=== PATIENT | female | born 1935 | race Hispanic/Latino ===

== ENCOUNTER 2019-05-22 06:18 | Inpatient (IN) | payer OTHER ==
[2019-05-22] MEDS ORDERED: NA CHLORIDE 0.9% 1,000 ML ONE (06:53)
[2019-05-22] MEDS ORDERED: FOLIC ACID 5 MG/ML VIAL ONE (06:54)
--- NOTE | 2019-05-22 07:13 | RAD REPORT ---
EXAM DESCRIPTION: CT - Ct Stroke Brain Wo Cont - 05/22/2019 6:40 am CLINICAL HISTORY: Hypertension, transient alteration of awareness, stroke protocol study CLINICAL HISTORY: CT head December 2015 TECHNIQUE: Axial 5 millimeter thick images of the head were obtained without IV contrast. All CT scans are performed using dose optimization technique as appropriate and may include automated exposure control or mA/KV adjustment according to patient size. FINDINGS: No intracranial hemorrhage, mass, or cerebral edema. No acute cortical based infarction. N o cortical edema or sulcal effacement. Significant atrophy changes are present. Ventricles are in pro portion to the amount of volume loss. There is chronic ischemic change as well. Small area of encepha lomalacia present in the lateral aspect left frontal lobe from prior CVA. No extra-axial fluid collec tions. Levy matter-white matter differentiation is preserved. Intracranial findings are not substantially different from the comparison. Visualized portions of the mastoid air cells, paranasal sinuses, and orbits are unremarkable. Findings telephoned to the referring physician 7:05 a.m. IMPRESSION: No CT evidence of an acute intracranial process. Advanced atrophy and mild chronic ischemic change are present matching the prior study. Chronic ischemic changes can mask nonhemorrhagic acute infarction. MR brain followup can be obtained if there is ongoing concern for acute ischemia.
[2019-05-22 07:39] LABS: Absolute Lymphocytes (CBC) 0.6 K/uL (0.7-4.9); Basophils % 0.4 % (0-1.3); Lymphocytes % 10.4 % (15.3-44.8); RBC Red Blood Cell Count 4.34 M/uL (3.86-4.86)
[2019-05-22 07:40] LABS: Protime INR 1.22
[2019-05-22 07:55] LABS: Magnesium 1.7 mg/dL (1.8-2.4); Potassium 3.7 mmol/L (3.5-5.1)
[2019-05-22] MEDS ORDERED: ASPIRIN 600 MG/SUPP PR ONE (08:29)
[2019-05-22] MEDS ORDERED: MAGNESIUM SULFATE 1 gm IVPB 1 GM/100 ML BAG IV ONE (08:53)
--- NOTE | 2019-05-22 08:53 | EDPHYS ---
Physician Documentation [facility] Name: Mary Frias Age: 84 yrs Sex: Female : 1935 Arrival Date: 05/22/2019 Time: 06:23 Bed 4 Private MD: ED Physician Adolfo Barriga HPI: 05/22 06:45 This 84 yrs old Female presents to ER via Unassigned with complaints of ams . jose 06:45 The patient presents with decreased responsiveness, dysphasia, trouble concentrating. jose Onset: The symptoms/episode began/occurred at an unknown time. Possible causes: CVA or TIA, head injury, low blood sugar. Associated signs and symptoms: The patient has no apparent associated signs or symptoms. Current symptoms: In the emergency department the patient's symptoms have improved, moderately, is more alert. Patient's baseline: Neuro: alert and fully oriented. The patient has not experienced similar symptoms in the past. Historical: - Allergies: 06:59 ETHER; bb - PMHx: 06:59 fracture- right shoulder, forearm and left wrist.; NIDDM, HTN, hypercholestermia, bb kidney stones, obesity,; - PSHx: 06:59 Knee surgery; bb - Immunization history:: Adult Immunizations up to date. - Social history:: Smoking status: unknown. - Ebola Screening: : Patient negative for fever greater than or equal to 101.5 degrees Fahrenheit, and additional compatible Ebola Virus Disease symptoms. - Family history:: not pertinent. ROS: 06:45 Constitutional: Negative for fever, chills, and weight loss, Eyes: Negative for injury, jose pain, redness, and discharge, ENT: Negative for injury, pain, and discharge, Neck: Negative for injury, pain, and swelling, Cardiovascular: Negative for chest pain, palpitations, and edema, Respiratory: Negative for shortness of breath, cough, wheezing, and pleuritic chest pain, Abdomen/GI: Negative for abdominal pain, nausea, vomiting, diarrhea, and constipation, Back: Negative for injury and pain, : Negative for injury, bleeding, discharge, and swelling, MS/Extremity: Negative for injury and deformity, Skin: Negative for injury, rash, and discoloration, Psych: Negative for depression, anxiety, suicide ideation, homicidal ideation, and hallucinations, Allergy/Immunology: Negative for hives, rash, and allergies, Endocrine: Negative for neck swelling, polydipsia, polyuria, polyphagia, and marked weight changes, Hematologic/Lymphatic: Negative for swollen nodes, abnormal bleeding, and unusual bruising. 06:45 Neuro: Positive for altered mental status, speech changes, weakness. Exam: 06:45 Constitutional: This is a well developed, well nourished patient who is awake, alert, jose and in no acute distress. Head/Face: Normocephalic, atraumatic. Eyes: Pupils equal round and reactive to light, extra-ocular motions intact. Lids and lashes normal. Conjunctiva and sclera are non-icteric and not injected. Cornea within normal limits. Periorbital areas with no swelling, redness, or edema. ENT: Nares patent. No nasal discharge, no septal abnormalities noted. Tympanic membranes are normal and external auditory canals are clear. Oropharynx with no redness, swelling, or masses, exudates, or evidence of obstruction, uvula midline. Mucous membranes moist. Neck: Trachea midline, no thyromegaly or masses palpated, and no cervical lymphadenopathy. Supple, full range of motion without nuchal rigidity, or vertebral point tenderness. No Meningismus. Chest/axilla: Normal chest wall appearance and motion. Nontender with no deformity. No lesions are appreciated. Cardiovascular: Regular rate and rhythm with a normal S1 and S2. No gallops, murmurs, or rubs. Normal PMI, no JVD. No pulse deficits. Respiratory: Lungs have equal breath sounds bilaterally, clear to auscultation and percussion. No rales, rhonchi or wheezes noted. No increased work of breathing, no retractions or nasal flaring. Abdomen/GI: Soft, non-tender, with normal bowel sounds. No distension or tympany. No guarding or rebound. No evidence of tenderness throughout. Back: No spinal tenderness. No costovertebral tenderness. Full range of motion. Female : Normal external genitalia. Skin: Warm, dry with normal turgor. Normal color with no rashes, no lesions, and no evidence of cellulitis. MS/ Extremity: Pulses equal, no cyanosis. Neurovascular intact. Full, normal range of motion. Neuro: Awake and alert, GCS 15, oriented to person, place, time, and situation. Cranial nerves II-XII grossly intact. Motor strength 5/5 in all extremities. Sensory grossly intact. Cerebellar exam normal. Normal gait. Psych: Awake, alert, with orientation to person, place and time. Behavior, mood, and affect are within normal limits. Vital Signs: 06:38 BP 195 / 88; Pulse 88; Resp 20 S; Temp 98(O); Pulse Ox 97% on 2 lpm NC; Weight 90.72 kg jd3 (R); Height 5 ft. 5 in. (165.10 cm) (R); Pain 0/10; 08:30 Pulse Ox 91% on R/A; sv 08:44 BP 203 / 98; Pulse 90; Resp 18; Pulse Ox 98% on 2 lpm NC; sv 09:30 BP 208 / 96; Pulse 85; Resp 20; Pulse Ox 98% on 2 lpm NC; sv 10:00 BP 217 / 82; Pulse 83; Resp 21; Pulse Ox 97% on 2 lpm NC; sv 06:38 Body Mass Index 33.28 (90.72 kg, 165.10 cm) jd3 08:30 Pt placed on O2 \T\ 2L per NC. O2 sat up to 98%. sv NIH Stroke Scale Scores: 06:45 NIHSS Score: 0 jose MDM: 06:24 Patient medically screened. jose 06:50 Data reviewed: vital signs, nurses notes, lab test result(s), EKG, radiologic studies, jose CT scan. 05/22 06:32 Order name: Magnesium; Complete Time: 08:11 jose 05/22 06:32 Order name: Basic Metabolic Panel; Complete Time: 08:11 jose 05/22 06:32 Order name: CBC with Diff; Complete Time: 08:11 jose 05/22 06:32 Order name: Protime (+inr); Complete Time: 08:11 jose 05/22 06:32 Order name: Ptt, Activated; Complete Time: 08:11 jose 05/22 06:32 Order name: Urine Culture [facility] 05/22 06:28 Order name: CT Stroke Brain w/o Contrast; Complete Time: 07:36 kb 05/22 06:32 Order name: Stroke CXR 1 View [facility] 05/22 06:32 Order name: BNP; Complete Time: 08:11 jose 05/22 07:44 Order name: Brain Wo Cont EDMS 05/22 08:39 Order name: Urine Dipstick--Ancillary (enter results) 05/22 08:40 Order name: US Carotid Artery Bilateral [facility] 05/22 08:40 Order name: Echo w/ Doppler [facility] 05/22 06:32 Order name: EKG; Complete Time: 06:34 [facility] 05/22 06:32 Order name: Accucheck; Complete Time: 06:45 [facility] 05/22 06:32 Order name: Cardiac monitoring; Complete Time: 06:45 [facility] 05/22 06:32 Order name: EKG - Nurse/Tech; Complete Time: 06:45 [facility] 05/22 06:32 Order name: IV Saline Lock; Complete Time: 06:45 [facility] 05/22 06:32 Order name: Labs collected and sent; Complete Time: 06:45 [facility] 05/22 06:32 Order name: NPO; Complete Time: 06:45 [facility] 05/22 06:32 Order name: O2 Per Protocol; Complete Time: 06:45 [facility] 05/22 06:32 Order name: O2 Sat Monitoring; Complete Time: 06:45 [facility] 05/22 06:32 Order name: Stroke Swallow Screen; Complete Time: 06:45 [facility] 05/22 06:32 Order name: Urine Dipstick-Ancillary (obtain specimen); Complete Time: 09:09 [facility] Administered Medications: 06:50 Drug: NS 0.9% 1000 ml Route: IV; Rate: 1 bolus; Site: left antecubital; rr5 08:00 Follow up: Response: No adverse reaction; IV Status: Completed infusion; IV Intake: sv 1000ml 06:50 Drug: foLIC Acid 1 mg Route: IVPB; Site: left antecubital; rr5 08:00 Follow up: Response: No adverse reaction; IV Status: Completed infusion; IV Intake: sv 0.2ml 08:38 CANCELLED (failed swallow screening, informed Dr Barriga): Aspirin Chewable Tablet 324 sv mg PO once; 81 mg tablets x 4 08:38 Drug: Aspirin Suppository 300 mg Route: GA; sv 08:50 Follow up: Response: No adverse reaction sv 08:44 Drug: Magnesium Sulfate 1 grams Route: IVPB; Infused Over: 1 hrs; Site: left sv antecubital; 10:00 Follow up: Response: No adverse reaction; IV Status: Infusion continued upon admission sv 08:52 CANCELLED (Physician Discretion): Rocephin 1 grams IV at per protocol once; Given slow sv IV push per pharmacy instructions Point of Care Testing: Blood Glucose: 06:44 Blood Glucose: 290 mg/dL; jd3 Ranges: Critical Glucose Levels:Adult <50 mg/dl or >400 mg/dl <40 mg/dl or >180 mg/dl Disposition: 05/22/19 08:51 Hospitalization ordered by Jenifer Leroy for Inpatient Admission. Preliminary diagnosis are Weakness, Hypomagnesemia, Type 2 diabetes mellitus, Altered mental status, unspecified. - Bed requested for Telemetry/MedSurg (Inpatient). - Status is Inpatient Admission. iw - Condition is Fair. - Problem is new. - Symptoms have improved. UTI on Admission? No NIH Stroke Scale - NIH Stroke Score Date: 05/22/2019 Time: 06:45 Total Score = 0 1a. Level of Consciousness (LOC) - 0(Alert) 1b. Level of Consciousness (LOC) (Year \T\ Age) - 0(Both) 1c. LOC Commands (Open \T\ Closes Eyes/Certified Lactation Counselor) - 0(Both) 2. Best Gaze (Lateral Gaze Paresis) - 0(Normal) 3. Visual Field Loss - 0(No visual loss) 4. Facial Palsy - 0(Normal) 5a. Left Arm: Motor (10-second hold) - 0(No drift) 5b. Right Arm: Motor (10-second hold) - 0(No drift) 6a. Left Leg: Motor (5-second hold - always test supine) - 0(No drift) 6b. Right Leg: Motor (5-second hold - always test supine) - 0(No drift) 7. Limb Ataxia (finger/nose \T\ heel/myers - test with eyes open) - 0(Absent) 8. Sensory Loss (pinprick arms/legs/face) - 0(Normal) 9. Best Language: Aphasia (description/naming/reading) - 0(No aphasia) 10. Dysarthria (speech clarity - read or repeat words) - 0(Normal) 11. Extinction and Inattention (visual/tactile/auditory/spatial/personal) - 0(No abnormality) Initials: jose Signatures: Dispatcher [employer] Maureen Theodore RN RN sv Anderson, Corey, MD MD cha Ballard, Brenda, RN RN bb Williams, Irene, RN RN iw Davies, Jonathon, RN RN jd3 Cristino Cuellar RN RN ja1 Eliecer Dupont, RN RN rr5 Corrections: (The following items were deleted from the chart) 07:46 06:59 MR STROKE PROTOCOL+MRI.RAD.BRZ ordered. EDMS EDMS 08:38 07:24 Aspirin Chewable Tablet 324 mg PO once; 81 mg tablets x 4 ordered. jose sv 08:38 08:38 Aspirin Chewable Tablet 324 mg PO once; 81 mg tablets x 4 ordered. sv sv 08:52 08:39 Rocephin 1 grams IV at per protocol once; Given slow IV push per pharmacy sv instructions ordered. jose 08:52 08:51 Rocephin 1 grams IV at per protocol once; Given slow IV push per pharmacy sv instructions ordered. sv 09:37 08:51 Hospitalization Ordered by Jenifer Leroy MD for Inpatient Admission. ja1 Preliminary diagnosis is Weakness; Hypomagnesemia; Type 2 diabetes mellitus; Altered mental status, unspecified. Bed requested for Telemetry/MedSurg (Inpatient). Status is Inpatient Admission. Condition is Fair. Problem is new. Symptoms have improved. UTI on Admission? No. jose 10:18 09:37 05/22/2019 08:51 Hospitalization Ordered by Jenifer Leroy MD for Inpatient iw Admission. Preliminary diagnosis is Weakness; Hypomagnesemia; Type 2 diabetes mellitus; Altered mental status, unspecified. Bed requested for Telemetry/MedSurg (Inpatient). Status is Inpatient Admission. Condition is Fair. Problem is new. Symptoms have improved. UTI on Admission? No. ja1
--- NOTE | 2019-05-22 08:53 | ER ---
Nurse's Notes [facility] Name: Mary Frias Age: 84 yrs Sex: Female : 1935 Arrival Date: 05/22/2019 Time: 06:23 Bed 4 Private MD: Diagnosis: Weakness;Hypomagnesemia;Type 2 diabetes mellitus;Altered mental status, unspecified Presentation: 05/22 06:25 Presenting complaint: EMS states: pt states they were toned out for report of pt being bb unresponsive with difficulty speaking, daughter states pt had a fall yesterday and was seen at [place] and had a CT done which was negative, pt was sent home and seemed fine all day just a little sore then daughter went to bed last night approx [id number] and pt wanted to stay up and read her bible. Pt was sitting at the kitchen table when she went to bed last night and when she woke up this morning pt was slumped over at the kitchen unresponsive and was having difficulty talking and couldn't move. Transition of care: patient was not received from another setting of care. Onset of symptoms was May 21, 2019 at 21:30. Risk Assessment: Do you want to hurt yourself or someone else? Unable to obtain. Initial Sepsis Screen: Does the patient meet any 2 criteria? No. Patient's initial sepsis screen is negative. Does the patient have a suspected source of infection? No. Patient's initial sepsis screen is negative. Care prior to arrival: IV initiated. 20 GA, in the left forearm. 06:25 Method Of Arrival: EMS: [facility] 06:25 Acuity: SARA 2 bb Historical: - Allergies: 06:59 ETHER; bb - PMHx: 06:59 fracture- right shoulder, forearm and left wrist.; NIDDM, HTN, hypercholestermia, bb kidney stones, obesity,; - PSHx: 06:59 Knee surgery; bb - Immunization history:: Adult Immunizations up to date. - Social history:: Smoking status: unknown. - Ebola Screening: : Patient negative for fever greater than or equal to 101.5 degrees Fahrenheit, and additional compatible Ebola Virus Disease symptoms. - Family history:: not pertinent. Screenin:43 Abuse screen: Denies threats or abuse. Nutritional screening: No deficits noted. jd3 Tuberculosis screening: No symptoms or risk factors identified. Fall Risk IV access (20 points). Ambulatory Aid- None/Bed Rest/Nurse Assist (0 pts). Gait- Weak (10 pts.). Total Nunez Fall Scale indicates Low Risk Score (25-44 pts). Fall prevention measures have been instituted. Side Rails Up X 2 Placed close to Nursing Station Frequent Obs/Assesments occuring. 06:59 The patient has not been NPO before screening. The patient is alert, able to follow bb commands. The patient exhibits slurred or garbled speech. The patient is exhibiting difficulty speaking. The patient does not exhibit difficulty understanding words. The patient is able to swallow own secretions with no drooling or need for suction. The patient failed the bedside swallow screening. The patient will be kept NPO until cleared by Speech Therapy or Physician. Provider notified of bedside swallow screening results: Adolfo Barriga MD. Assessment: 07:15 General: Appears in no apparent distress. uncomfortable, obese, well developed, sv Behavior is calm, cooperative, appropriate for age. General: Family reports decreased mentation.. Pain: Denies pain. Neuro: Level of Consciousness is awake, obeys commands, confused, Oriented to person, Moves all extremities. Facial symmetry appears normal. Cardiovascular: Patient's skin is warm and dry. Rhythm is sinus rhythm. Respiratory: Airway is patent Respiratory effort is even, unlabored, Respiratory pattern is regular, symmetrical. Derm: Skin is normal. Musculoskeletal: Range of motion: intact in all extremities. 08:30 Reassessment: Patient appears in no apparent distress at this time. No changes from sv previously documented assessment. Patient and/or family updated on plan of care and expected duration. Pain level reassessed. 08:50 Reassessment: US at the bedside. sv 09:10 Reassessment: Dr Leroy at the bedside. sv 09:45 Reassessment: Patient appears in no apparent distress at this time. No changes from sv previously documented assessment. Patient and/or family updated on plan of care and expected duration. Pain level reassessed. Vital Signs: 06:38 BP 195 / 88; Pulse 88; Resp 20 S; Temp 98(O); Pulse Ox 97% on 2 lpm NC; Weight 90.72 kg jd3 (R); Height 5 ft. 5 in. (165.10 cm) (R); Pain 0/10; 08:30 Pulse Ox 91% on R/A; sv 08:44 BP 203 / 98; Pulse 90; Resp 18; Pulse Ox 98% on 2 lpm NC; sv 09:30 BP 208 / 96; Pulse 85; Resp 20; Pulse Ox 98% on 2 lpm NC; sv 10:00 BP 217 / 82; Pulse 83; Resp 21; Pulse Ox 97% on 2 lpm NC; sv 06:38 Body Mass Index 33.28 (90.72 kg, 165.10 cm) jd3 08:30 Pt placed on O2 \T\ 2L per NC. O2 sat up to 98%. sv NIH Stroke Scale Scores: 06:45 NIHSS Score: 0 jose ED Course: 06:23 Patient arrived in ED. ds1 06:24 Adolfo Barriga MD is Attending Physician. jose 06:35 CT completed. Patient tolerated procedure well. Patient moved to CT via stretcher. Patient moved back from CT. 06:41 CT Stroke Brain w/o Contrast In Process Unspecified. EDMS 06:42 Arm band placed on. EKG completed in triage. Results shown to MD. jd3 06:43 Maintain EMS IV. Dressing intact. Good blood return noted. Site clean \T\ dry. Gauge \T\ jett 3 site: 20 G left AC. 06:44 Patient has correct armband on for positive identification. Placed in gown. Bed in low jd3 position. Call light in reach. Side rails up X2. bus monitor on. Pulse ox on. NIBP on. Warm blanket given. 06:47 Stroke CXR 1 View In Process Unspecified. EDMS 06:59 Triage completed. bb 07:38 Patient moved to MRI via stretcher. em2 07:44 Maureen Chapman, RN is Primary Nurse. sv 07:49 Brain Wo Cont In Process Unspecified. EDMS 08:13 MRI completed. Patient tolerated well. Patient moved back from MRI. em2 08:30 Straight cath inserted, using sterile technique, 16 Fr. Specimen obtained. Returned sv clear yellow urine. Patient tolerated poorly. 08:49 Jenifer Leroy MD is Hospitalizing Provider. jose 09:24 US Carotid Artery Bilateral In Process Unspecified. EDMS 10:04 No provider procedures requiring assistance completed. Patient admitted, IV remains in sv place. intact. 17:56 Echo w/ Doppler Sent. sv Administered Medications: 06:50 Drug: NS 0.9% 1000 ml Route: IV; Rate: 1 bolus; Site: left antecubital; rr5 08:00 Follow up: Response: No adverse reaction; IV Status: Completed infusion; IV Intake: sv 1000ml 06:50 Drug: foLIC Acid 1 mg Route: IVPB; Site: left antecubital; rr5 08:00 Follow up: Response: No adverse reaction; IV Status: Completed infusion; IV Intake: sv 0.2ml 08:38 CANCELLED (failed swallow screening, informed Dr Barriga): Aspirin Chewable Tablet 324 sv mg PO once; 81 mg tablets x 4 08:38 Drug: Aspirin Suppository 300 mg Route: WI; sv 08:50 Follow up: Response: No adverse reaction sv 08:44 Drug: Magnesium Sulfate 1 grams Route: IVPB; Infused Over: 1 hrs; Site: left sv antecubital; 10:00 Follow up: Response: No adverse reaction; IV Status: Infusion continued upon admission sv 08:52 CANCELLED (Physician Discretion): Rocephin 1 grams IV at per protocol once; Given slow sv IV push per pharmacy instructions Point of Care Testing: Blood Glucose: 06:44 Blood Glucose: 290 mg/dL; jd3 Ranges: Intake: 08:00 IV: 1000ml; Total: 1000ml. sv 08:00 IV: 0ml; Total: 1000ml. sv Outcome: 08:51 Decision to Hospitalize by Provider. jose 10:04 Admitted to Tele accompanied by tech, family with patient, via stretcher, room 414, sv with chart, Report called to Lazaro ALVAREZ 10:04 Condition: stable 10:04 Instructed on the need for admit. 10:18 Patient left the ED. iw NIH Stroke Scale - NIH Stroke Score Date: 05/22/2019 Time: 06:45 Total Score = 0 1a. Level of Consciousness (LOC) - 0(Alert) 1b. Level of Consciousness (LOC) (Year \T\ Age) - 0(Both) 1c. LOC Commands (Open \T\ Closes Eyes/Senior Data Warehouse Architect) - 0(Both) 2. Best Gaze (Lateral Gaze Paresis) - 0(Normal) 3. Visual Field Loss - 0(No visual loss) 4. Facial Palsy - 0(Normal) 5a. Left Arm: Motor (10-second hold) - 0(No drift) 5b. Right Arm: Motor (10-second hold) - 0(No drift) 6a. Left Leg: Motor (5-second hold - always test supine) - 0(No drift) 6b. Right Leg: Motor (5-second hold - always test supine) - 0(No drift) 7. Limb Ataxia (finger/nose \T\ heel/myers - test with eyes open) - 0(Absent) 8. Sensory Loss (pinprick arms/legs/face) - 0(Normal) 9. Best Language: Aphasia (description/naming/reading) - 0(No aphasia) 10. Dysarthria (speech clarity - read or repeat words) - 0(Normal) 11. Extinction and Inattention (visual/tactile/auditory/spatial/personal) - 0(No abnormality) Initials: jose Signatures: Dispatcher [employer] Maureen Theodore, RN RN Adolfo Kohli MD MD cha Hagler, [place] ds1 Shawna Verde RN Abby Barbour RN Steve Antony em2 Conrad Sosa RN RN jd3 Eliecer Dupont RN RN rr5
--- NOTE | 2019-05-22 08:54 | RAD REPORT ---
EXAM DESCRIPTION: MRI - Brain Wo Cont - 05/22/2019 8:00 am CLINICAL HISTORY: Dizziness COMPARISON: May 22, [address] TECHNIQUE: Axial, sagittal, and coronal magnetic images of the brain were obtained. Contrast was not requested FINDINGS: Abnormal signal within the left parietal lobe has the appearance of an old infarction. Cer ebral atrophy is noted. Diffusion-weighted/ADC mapping does not reveal evidence of acute infarction. The ventricles are normal caliber. An extra-axial fluid collection is not present The sinuses and mastoids are clear. IMPRESSION: No acute abnormality is displayed
[2019-05-22] MEDS ORDERED: CEFTRIAXONE/SWI 1gm 0 GM/0 ML SYR ONE (09:06)
--- NOTE | 2019-05-22 09:36 | RAD REPORT ---
EXAM DESCRIPTION: Yasmine Single View05/22/2019 6:46 am CLINICAL HISTORY: Chest pain COMPARISON: 2010 FINDINGS: The lungs appear clear of acute infiltrate. The heart is mildly enlarged. IMPRESSION: No acute abnormalities displayed
[2019-05-22 09:47] LABS: Urine Blood 1+ (NEG); Urine Glucose 2+ (NEG); Urine Protein 2+ (NEG); Urine Specific Gravity 1.025 (1.005-1.030); Urine pH 6.5 (5.0-7.0)
--- NOTE | 2019-05-22 10:47 | RAD REPORT ---
EXAM DESCRIPTION: USCarotid Artery Bilateral05/22/2019 9:23 am CLINICAL HISTORY: CVA COMPARISON: None FINDINGS: The velocity of the right internal carotid artery equals 81 cm/sec. The right ICA/CCA rati o 1 The velocity of the left internal carotid artery equals 58 cm/sec. The left ICA/CCA ratio 0.9 Mild plaque is present within the carotid arteries. The vertebral arteries demonstrate antegrade flow 2.3 x 0.7 centimeter left neck lymph node IMPRESSION: Mild plaque within the carotid arteries without evidence of a hemodynamically significan t stenosis NASCET criteria used. Mild 0-49% stenosis Moderate 50-69% stenosis Severe 70-99% stenosis 2.3 x 0.7 centimeter left neck lymph node nonspecific. Follow-up ultrasound of the neck in 6 weeks re commended for re-evaluation
[2019-05-22 11:22] VITALS: BMI 33.3
--- NOTE | 2019-05-22 13:33 | EKG ---
Test Date: 2019-05-22 Test Time: 06:45:46 Crossing Supervisor: FIORELLA MEASUREMENT RESULTS: Intervals: Rate: 89 DC: 150 QRSD: 92 QT: 370 QTc: 450 [place]: P: 41 DC: 150 QRS: -25 T: 11 INTERPRETIVE STATEMENTS: Normal sinus rhythm Minimal voltage criteria for LVH, may be normal variant Nonspecific ST and T wave abnormality Abnormal ECG Compared to ECG 06/20/2011 09:01:27 Left ventricular hypertrophy now present ST (T wave) deviation now present Sinus bradycardia no longer present Electronically Signed On 05-22-19 13:33:21 CDT by Angel Bowles
--- NOTE | 2019-05-22 13:36 | ECHO ---
HEIGHT: 5 ft 5 in WEIGHT: 200 lb 0 oz DATE OF STUDY: 05/22/[address]: Adolfo Barriga MD 2-DIMENSIONAL: YES M.MODE: YES DOPPLER: YES COLOR FLOW: YES TDS: YES PORTABLE: DEFINITY: BUBBLE STUDY: DIAGNOSIS: ALTERED MENTAL STATUS CARDIAC HISTORY: CATHERIZATION: NO SURGERY: NO PROSTHETIC VALVE: NO PACEMAKER: NO MEASUREMENTS (cm) DIASTOLIC (NORMALS) SYSTOLIC (NORMALS) IVSd 1.3 (0.6-1.2) LA Diam (1.9-4.0) LVEF 52% LVIDd 3.5 (3.5-5.7) LVIDs 2.6 (2.0-3.5) %FS 26% LVPWd 1.2 (0.6-1.2) Ao Diam 2.6 (2.0-3.7) 2 DIMENSIONAL ASSESSMENT: RIGHT ATRIUM: NORMAL LEFT ATRIUM: DILATED RIGHT VENTRICLE: NORMAL LEFT VENTRICLE: LEFT VENTRICULAR HYPERTROPHY TRICUSPID VALVE: NORMAL MITRAL VALVE: MITRAL ANNULAR CALCIFICATION PULMONIC VALVE: NORMAL AORTIC VALVE: SCLEROSIS PERICARDIAL EFFUSION: NONE AORTIC ROOT: NORMAL LEFT VENTRICULAR WALL MOTION: DOPPLER/COLOR FLOW: IMPAIRED LEFT VENTRICULAR RELAXATION. NO AORTIC STENOSIS OR AORTIC REGURGITATION. COMMENTS: NORMAL LEFT VENTRICULAR EJECTION FRACTION. LEFT VENTRICULAR HYPERTROPY. DILATED LEFT ATRIUM. MITRAL ANNULAR CALCIFICATION. AORTIC SCLEROSIS WITH NO AORTIC STENOSIS OR AORTIC REGURGITATION. IMPAIRED LEFT VENTRICULAR RELAXATION. TECHNOLOGIST: ASHLEY BECK
[2019-05-22] MEDS ORDERED: ONDANSETRON 4 MG/2 ML VIAL IV PRN (14:11)
[2019-05-22] MEDS ORDERED: HYDRALAZINE HCL 20 MG/ML VIAL IV ONE (14:12)
[2019-05-22] MEDS: ENOXAPARIN 40 MG/0.4 ML SQ SCH (15:27)
--- NOTE | 2019-05-22 16:37 | P.HP ---
Certification for Inpatient Patient admitted to: Inpatient With expected LOS: >2 Midnights Practitioner: I am a practitioner with admitting privileges, knowledge of patient current condition, hospital course, and medical plan of care. Services: Services provided to patient in accordance with Admission requirements found in Title 42 Section 412.3 of the Code of Federal Regulations Patient History Date of Service: 05/22/19 History of Present Illness: This is an 84-year-old female with history of hypertension, diabetes, hyperlipidemia admitted for altered mental status. Per family at bedside, patient started with more lethargy and confusion the night prior to admission. The morning of admission, daughter states that patient was fairly unresponsive. She would not respond with words and but just grunted when called. She was unable to provide any he answers to any questions. At baseline, daughter states that patient is usually alert oriented, independent in bathing and feeding herself. Family does state that patient was complaining of severe swelling on the left side. As patient was not really at her baseline mentation , they called the EMS and patient was rushed to the ER. In the ER, her labs were fairly unremarkable and as noted that her blood pressure was very high, over 200/80-90. Stroke protocol imaging was done. CT of the head without contrast noted chronic changes, with no acute abnormalities. An MRI of the brain was done which was without any acute changes. 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 At the time of my exam, patient was not responding to questions, though she was alert. Her blood pressure continued to be elevated. She was admitted for altered mentation, unspecified etiology. Allergies ether Allergy (Unverified 01/25/16 19:15) Unknown Home medications list reviewed: Yes Home Medications: Apixaban [Eliquis] 5 mg PO BID 05/22/19 Insulin Detemir [Levemir Flextouch] 20 units SQ BEDTIME 05/22/19 Lisinopril 40 mg PO DAILY 05/22/19 Melatonin 5 mg PO BEDTIME 05/22/19 Ranitidine [Zantac] 150 mg PO DAILY 05/22/19 - Past Medical/Surgical History -: Hypertension -: Diabetes Mellitus -: High Cholesterol -: Obesity -: kidnesy sx -: bone sx - Social History Smoking Status: Never smoker Alcohol use: No CD- Drugs: No Caffeine use: Yes Place of Residence: Home Review of Systems 10-point ROS is otherwise unremarkable Physical Examination - Vital Signs Temperature: 98 F Blood Pressure: 203/98 Pulse: 90 Respirations: 18 - Physical Exam General: Alert, In no apparent distress, Confused HEENT: Atraumatic, PERRLA, Mucous membr. moist/pink, Other (Left ear with redness/warmth to touch/tenderness), EOMI, Sclerae nonicteric Neck: Supple, 2+ carotid pulse no bruit, No LAD, Without JVD or thyroid abnormality Respiratory: Clear to auscultation bilaterally, Normal air movement Cardiovascular: Regular rate/rhythm, Normal S1 S2 Gastrointestinal: Normal bowel sounds, No tenderness Musculoskeletal: No tenderness Integumentary: No rashes Neurological: Other (Unable to do full neuro exam due to mentation), Dementia Lymphatics: No axilla or inguinal lymphadenopathy - Studies Laboratory Data (last 24 hrs) 05/22/19 07:00: PT 14.3 H, INR 1.22, APTT 32.8 05/22/19 07:00: WBC 5.7, Hgb 13.8, Hct 41.0, Plt Count 165 05/22/19 07:00: Sodium 138, Potassium 3.7, BUN 10, Creatinine 0.74, Glucose 295 H, Magnesium 1.7 L Assessment and Plan - Problems (Diagnosis) (1) Encephalopathy Current Visit: Yes Status: Acute Plan: Unknown etiology; could be secondary to hypertensive urgency versus CVA versus advancing dementia - MRI of the head negative for any acute abnormalities; it does note Abnormal signal within the left parietal lobe has the appearance of an old infarction. Cerebral atrophy is noted. - ultrasound of bilateral carotid artery is negative for any hemodynamically significant stenosis. - echocardiogram done, evident over diastolic heart failure with preserved ejection fraction. No volume overload symptoms noted on exam - CT scan of the head negative for any acute abnormalities; does show chronic ischemic changes - hold IV fluids this time due to diastolic failure. She did receive IV fluids in the ER. - continue to treat hypertensive disease; urine studies pending - May need urology consultation when available, if no improvement in neurological status. (2) Hypertensive urgency Current Visit: Yes Status: Acute Plan: Patient with uncontrolled blood pressure and altered mental status concerning for hypertensive urgency - IV hydralazine 10 mg q. 6 as needed. Strict blood pressure monitor -we will restart home medications and make adjustments as needed. (3) Cellulitis Current Visit: Yes Status: Acute Plan: Patient has swelling/redness and warmth of left ear/pinna. - will go ahead and start IV antibiotics to cover for skin infection. - no white count noted, no fever or chills. Will continue to monitor vital signs and labs Qualifiers: Site of cellulitis: other site Qualified Code(s): L03.818 - Cellulitis of other sites (4) Dysphasia Current Visit: Yes Status: Acute Plan: Patient having suspected trouble swallowing. - Speech therapy and MBS to evaluate swallow function. - keep NPO until MBS done (5) History of CVA (cerebrovascular accident) Current Visit: No Status: Chronic (6) Hypertension Current Visit: Yes Status: Chronic Plan: Uncontrolled, see plan above. -Will restart home medications, monitor blood pressure Qualifiers: Hypertension type: essential hypertension Qualified Code(s): I10 - Essential (primary) hypertension (7) Diabetes mellitus Current Visit: No Status: Chronic Qualifiers: Diabetes mellitus type: type 2 Diabetes mellitus assisted insulin use: with assisted use Diabetes mellitus complication status: without complication Qualified Code(s): E11.9 - Type 2 diabetes mellitus without complications; Z79.4 - MCFP (current) use of insulin (8) Hyperlipidemia Current Visit: No Status: Chronic Qualifiers: Hyperlipidemia type: unspecified Qualified Code(s): E78.5 - Hyperlipidemia , unspecified (9) Obesity Current Visit: Yes Status: Acute Qualifiers: Obesity type: due to excess calories Obesity classification: adult class 1 (BMI 30 - 34.9) Serious obesity comorbidity presence: without serious comorbidity Body mass index: BMI 33.0-33.9 Qualified Code(s): E66.09 - Other obesity due to excess calories; Z68.33 - Body mass index (BMI) 33.0-33.9, adult - Plan DVT prophylaxis: Lovenox GI prophylaxis: None Diet: NPO till MBS Disposition: Pending workup and symptomatic improvement. Discharge Plan: Home Plan to discharge in: Greater than 2 days - Advance Directives Does patient have a Living Will: Yes Does patient have a Durable POA for Healthcare: Yes - Code Status/Comfort Care Code Status Assessed: Yes Code Status: Do Not Resuscitate Time Spent Managing Pts Care (In Minutes): 55
[2019-05-22] MEDS: INSULIN -REGULAR HUMAN 50 UNIT/0.5 ML ML SQ SCH ×2 (16:44→20:01)
[2019-05-22] MEDS: ACETAMINOPHEN 500 MG TAB PO PRN (19:55)
[2019-05-22] MEDS: INSULIN GLARGINE 100 UNITS/ML SQ SCH (20:01)
[2019-05-22] MEDS: HYDRALAZINE HCL 20 MG/ML VIAL IV PRN (20:02)
[2019-05-22] MEDS: MELATONIN 5 MG TABLET PO SCH (20:02)
[2019-05-22] MEDS: APIXABAN 5 MG TABLET PO SCH (20:02)
[2019-05-22] MEDS ORDERED: POTASSIUM 25 MEQ EFFERV TAB PO ONE (21:00)
[2019-05-22] MEDS ORDERED: INSULIN DETEMIR 20 UNIT SQ SCH (21:00)
--- NOTE | 2019-05-22 21:19 | RAD REPORT ---
EXAM DESCRIPTION: RAD - Barium Swallow Modified - 05/22/2019 5:40 pm CLINICAL HISTORY: Dysphagia COMPARISON: None. TECHNIQUE: The patient was given liquid, semi-solid and solid forms of barium. Lateral view fluorosc opic imaging was performed in conjunction with speech pathology service. FINDINGS: [place]oop acquisitions: 26 Fluoro time: 4 minutes 46 seconds PHARYNGEAL RESIDUE: VALLECULAR, PYRIFORM OTHER: SEVER ORAL DYSPHAGIA, MIN WITH THIN AND AT END OF STUDY. 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
[2019-05-23] MEDS: HYDRALAZINE HCL 20 MG/ML VIAL IV PRN (04:55)
[2019-05-23 05:57] LABS: Absolute Lymphocytes (CBC) 0.8 K/uL (0.7-4.9); Basophils % 0.5 % (0-1.3); Hematocrit 38.3 % (36.0-45.0); Lymphocytes % 12.7 % (15.3-44.8); MPV 11.2 fL (7.6-11.3)
[2019-05-23 06:15] LABS: ALT/SGPT 23 U/L (12-78); AST/SGOT 28 U/L (15-37); Albumin 3.1 g/dL (3.4-5.0); Alkaline Phosphatase 84 U/L (45-117); BUN Blood Urea Nitrogen 12 mg/dL (7-18); Bicarbonate 28 mmol/L (21-32); Bilirubin Total 0.7 mg/dL (0.2-1.0); Glucose Level 273 mg/dL (74-106); Potassium 3.5 mmol/L (3.5-5.1); Protein, Total 6.6 g/dL (6.4-8.2); Sodium Level 137 mmol/L (136-145)
[2019-05-23] MEDS: INSULIN -REGULAR HUMAN 50 UNIT/0.5 ML ML SQ SCH ×4 (08:17→21:31)
[2019-05-23] MEDS: APIXABAN 5 MG TABLET PO SCH ×2 (08:18→21:32)
[2019-05-23] MEDS: RANITIDINE 150 MG TABLET PO SCH (08:18)
[2019-05-23] MEDS: ENOXAPARIN 40 MG/0.4 ML SQ SCH (08:19)
[2019-05-23] MEDS: LISINOPRIL 20 MG TAB PO SCH (08:19)
[2019-05-23] MEDS: CEFTRIAXONE/SWI 1gm 1 GM/10 ML SYR IVP SCH (08:19)
[2019-05-23] MEDS ORDERED: LISINOPRIL 20 MG TAB PO SCH (09:00)
[2019-05-23] MEDS ORDERED: HOME MED 1 EA UNK (Lisinopril [Lisinopril] 40 MG) PO SCH (09:00)
[2019-05-23] MEDS ORDERED: POTASSIUM 25 MEQ EFFERV TAB PO ONE (09:00)
--- NOTE | 2019-05-23 11:58 | P.PN ---
Subjective Date of Service: 05/23/19 (Hospitalist) Chief Complaint: Altered mental status pain in the left ear Subjective: Improving (Patient admitted with onto mental status apparently prior to her admission patient was ambulating is suddenly had a recent fall complaining of pain and swelling in her left year which has improved his with antibiotics the pressure is elevated) Review of Systems is unable to be obtained Physical Examination - Vital Signs Temperature: 98.9 F Blood Pressure: 178/62 Pulse: 97 Respirations: 20 Pulse Ox (%): 98 - Physical Exam General: Alert, Cooperative Neck: Supple Respiratory: Clear to auscultation bilaterally Cardiovascular: No edema, Regular rate/rhythm Integumentary: Other (Left ear is swollen and red right TM looks unremarkable) Neurological: Normal speech Assessment & Plan - Problems (Diagnosis) (1) Encephalopathy Current Visit: Yes Status: Acute Plan: Patient is 84 years of age admitted with altered mental status which came on rather suddenly. So far urine culture is negative Dc normal chemistries unremarkable apart from elevated blood sugar patient is a diabetic had a slight temperature since admission currently on IV Rocephin do some labs pro calcitonin blood cultures physical therapy MRI of the brain is negative chest x- ray no obvious pneumonia
[2019-05-23] MEDS: ACETAMINOPHEN 500 MG TAB PO PRN (11:59)
--- NOTE | 2019-05-23 15:34 | RAD REPORT ---
EXAM DESCRIPTION: CT - Thorax Wo Con - 05/23/2019 3:25 pm CLINICAL HISTORY: sob COMPARISON: May 22, 2019 chest x-ray TECHNIQUE: Computed axial tomography of the chest was obtained. Contrast was not requested. All CT scans are performed using dose optimization technique as appropriate and may include automated exposure control or mA/KV adjustment according to patient size. FINDINGS: The evaluation of mediastinum, jing and vessels is limited secondary to lack of IV contras t administration. Minimal subsegmental atelectasis lung bases. The remainder the lungs are clear No mediastinal or hilar lymphadenopathy is seen. A pleural effusion is not present. No pericardial effusion Coronary arterial calcifications IMPRESSION: Minimal subsegmental atelectasis lung bases
[2019-05-23] MEDS: NAPROXEN 250 MG TAB PO PRN (18:09)
[2019-05-23] MEDS: INSULIN GLARGINE 100 UNITS/ML SQ SCH (21:31)
[2019-05-23] MEDS: MELATONIN 5 MG TABLET PO SCH (21:32)
[2019-05-24 06:02] LABS: Absolute Lymphocytes (CBC) 1.4 K/uL (0.7-4.9); Basophils % 0.6 % (0-1.3); Hematocrit 35.5 % (36.0-45.0); Lymphocytes % 25.6 % (15.3-44.8); MPV 11.4 fL (7.6-11.3); RBC Red Blood Cell Count 3.78 M/uL (3.86-4.86)
[2019-05-24 06:21] LABS: ALT/SGPT 19 U/L (12-78); AST/SGOT 27 U/L (15-37); Albumin 2.8 g/dL (3.4-5.0); Alkaline Phosphatase 71 U/L (45-117); BUN Blood Urea Nitrogen 19 mg/dL (7-18); Bicarbonate 33 mmol/L (21-32); Bilirubin Total 0.5 mg/dL (0.2-1.0); Glucose Level 170 mg/dL (74-106); Potassium 3.7 mmol/L (3.5-5.1); Protein, Total 5.7 g/dL (6.4-8.2); Sodium Level 140 mmol/L (136-145)
[2019-05-24] MEDS: INSULIN -REGULAR HUMAN 50 UNIT/0.5 ML ML SQ SCH ×4 (08:21→21:36)
[2019-05-24] MEDS: NAPROXEN 250 MG TAB PO PRN (08:22)
[2019-05-24] MEDS: LISINOPRIL 20 MG TAB PO SCH (08:23)
[2019-05-24] MEDS: APIXABAN 5 MG TABLET PO SCH ×2 (08:23→21:34)
[2019-05-24] MEDS: RANITIDINE 150 MG TABLET PO SCH (08:25)
[2019-05-24] MEDS: CEFTRIAXONE/SWI 1gm 1 GM/10 ML SYR IVP SCH (09:00)
[2019-05-24] MEDS ORDERED: POTASSIUM 25 MEQ EFFERV TAB PO ONE (09:00)
[2019-05-24] MEDS ORDERED: CIPROFLOXACIN/DEXAMETH OTIC 7.5 ML BTL OTIC SCH (09:22)
--- NOTE | 2019-05-24 09:26 | P.PN ---
Subjective Date of Service: 05/24/19 Chief Complaint: Otitis externa Patient is still complaining of pain in the left ear still weak also has some so throat Review of Systems is unable to be obtained Physical Examination - Vital Signs Temperature: 98.2 F Blood Pressure: 155/68 Pulse: 79 Respirations: 18 Pulse Ox (%): 95 - Physical Exam General: Alert, Cooperative Neck: Supple Respiratory: Clear to auscultation bilaterally Cardiovascular: No edema, Regular rate/rhythm Integumentary: Other (Left ear is swollen and erythematous) - Studies Microbiology Data (last 24 hrs): 05/22/19 08:30 Catheterized Urine [place] Count - Final <10,000 CFU/ML. 05/22/19 08:30 Catheterized Urine - Final No growth. Assessment & Plan - Problems (Diagnosis) (1) Otitis externa Current Visit: Yes Status: Acute Plan: Patient's left ear is very is swollen and red most likely otitis externa for ciprofloxacin 500 mg twice a day in addition to Cipro with steroid he drops. ENT Consul Dc IV Rocephin patient is able to stand there is no neurological weakness MRI of the brain was negative chemistries unremarkable cultures are so far negative pro calcitonin level was normal Qualifiers: Otitis externa type: other infective Chronicity: acute Laterality: left Qualified Code(s): H60.392 - Other infective otitis externa, left ear
[2019-05-24] MEDS: CIPROFLOXACIN HCL 500 MG TAB PO SCH ×2 (09:45→21:34)
[2019-05-24] MEDS: OFLOXACIN OPH 0.3%-5 ML BTL OTIC SCH ×2 (11:12→21:35)
[2019-05-24] MEDS: ACETAMINOPHEN 500 MG TAB PO PRN (11:22)
[2019-05-24] MEDS ORDERED: LACTULOSE 20 GM/30 ML UCUP PO PRN (11:43)
[2019-05-24] MEDS: INSULIN GLARGINE 100 UNITS/ML SQ SCH (21:35)
[2019-05-24] MEDS: MELATONIN 5 MG TABLET PO SCH (21:35)
[2019-05-24] MEDS: HYDRALAZINE HCL 20 MG/ML VIAL IV PRN (21:37)
[2019-05-25 05:49] LABS: Absolute Lymphocytes (CBC) 1.3 K/uL (0.7-4.9); Basophils % 0.6 % (0-1.3); Hematocrit 36.5 % (36.0-45.0); Lymphocytes % 25.3 % (15.3-44.8); MPV 10.6 fL (7.6-11.3)
[2019-05-25 05:58] LABS: ALT/SGPT 23 U/L (12-78); AST/SGOT 27 U/L (15-37); Albumin 2.9 g/dL (3.4-5.0); Alkaline Phosphatase 71 U/L (45-117); BUN Blood Urea Nitrogen 17 mg/dL (7-18); Bicarbonate 32 mmol/L (21-32); Bilirubin Total 0.4 mg/dL (0.2-1.0); Glucose Level 163 mg/dL (74-106); Potassium 3.9 mmol/L (3.5-5.1); Sodium Level 141 mmol/L (136-145)
[2019-05-25 06:23] LABS: Magnesium 1.9 mg/dL (1.8-2.4); Phosphorus 3.1 mg/dL (2.5-4.9)
[2019-05-25] MEDS: INSULIN -REGULAR HUMAN 50 UNIT/0.5 ML ML SQ SCH ×2 (07:30→12:16)
[2019-05-25] MEDS: RANITIDINE 150 MG TABLET PO SCH (08:21)
[2019-05-25] MEDS: LISINOPRIL 20 MG TAB PO SCH (08:21)
[2019-05-25] MEDS: CIPROFLOXACIN HCL 500 MG TAB PO SCH (08:21)
[2019-05-25] MEDS: APIXABAN 5 MG TABLET PO SCH (08:22)
[2019-05-25] MEDS: OFLOXACIN OPH 0.3%-5 ML BTL OTIC SCH (08:23)
[2019-05-25 08:58] VITALS: O2SAT 96
[2019-05-25] MEDS ORDERED: POTASSIUM CL SA 10 MEQ TAB PO ONE (09:00)
[2019-05-25 14:08] VITALS: BP 131/62; TEMP 97.6
--- NOTE | 2019-05-25 16:21 | P.DS ---
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: with shelter use Diabetes mellitus complication status: without complication Qualified Code(s): E11.9 - Type 2 diabetes mellitus without complications; Z79.4 - ferry terminal supervisor (current) use of insulin (4) History of CVA (cerebrovascular accident) Status: Chronic (5) Hyperlipidemia Status: Chronic Qualifiers: Hyperlipidemia type: unspecified Qualified Code(s): E78.5 - Hyperlipidemia , unspecified (6) Hypertension Status: Chronic Qualifiers: Hypertension type: essential hypertension Qualified Code(s): I10 - Essential (primary) hypertension Brief History of Present Illness: This is an 84-year-old female with history of hypertension, diabetes, hyperlipidemia admitted for altered mental status. Per family at bedside, patient started with more lethargy and confusion the night prior to admission. The morning of admission, daughter states that patient was fairly unresponsive. She would not respond with words and but just grunted when called. She was unable to provide any he answers to any questions. At baseline, daughter states that patient is usually alert oriented, independent in bathing and feeding herself. Family does state that patient was complaining of severe swelling on the left side. As patient was not really at her baseline mentation , they called the EMS and patient was rushed to the ER. In the ER, her labs were fairly unremarkable and as noted that her blood pressure was very high, over 200/80-90. Stroke protocol imaging was done. CT of the head without contrast noted chronic changes, with no acute abnormalities. An MRI of the brain was done which was without any acute changes. 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 At the time of my exam, patient was not responding to questions, though she was alert. Her blood pressure continued to be elevated. She was admitted for altered mentation, unspecified etiology. Hospital Course: Overall during the hospital stay patient remained stable Patient was initially admitted to the hospital for altered mental status. CT scan brain MRI echocardiogram carotid Dopplers were all done to rule out acute CVA versus any other acute abnormality. All the imaging studies were negative for any acute abnormality. Patient had an year even that here in the hospital and was found to have left-sided otitis externa after she was found to have left -sided facial swelling. Patient was started on otic drops is Ciprodex and had marked improvement in her symptoms at which time she was doing much better than before and thus was discharged home under stable condition. Patient's family at bedside was there was educated extensively regarding patient's disease process the plan of care will read with discharge and thus patient was discharged home under stable condition patient was given the eardrops for Ciprodex to be taken for next 14 days Vital Signs/Physical Exam: Temp Pulse Resp BP Pulse Ox 97.6 F 89 28 H 131/62 93 05/25/19 12:00 05/25/19 12:00 05/25/19 12:00 05/25/19 12:00 05/25/19 12:00 General: Alert, In no apparent distress HEENT: Atraumatic, PERRLA, EOMI Neck: Supple, JVD not distended Respiratory: Clear to auscultation bilaterally, Normal air movement Cardiovascular: Regular rate/rhythm, Normal S1 S2 Gastrointestinal: Normal bowel sounds, No tenderness Musculoskeletal: No tenderness Integumentary: No rashes Neurological: Normal speech, Normal tone, Normal affect Lymphatics: No axilla or inguinal lymphadenopathy Laboratory Data at Discharge: WBC 5.2 K/uL (4.3-10.9) 05/25/19 05:32 Hgb 12.4 g/dL (12.0-15.0) 05/25/19 05:32 Hct 36.5 % (36.0-45.0) 05/25/19 05:32 Plt Count 147 K/uL (152-406) L 05/25/19 05:32 PT 14.3 SECONDS (9.5-12.5) H 05/22/19 07:00 INR 1.22 05/22/19 07:00 APTT 32.8 SECONDS (24.3-36.9) 05/22/19 07:00 Sodium 141 mmol/L (136-145) 05/25/19 05:32 Potassium 3.9 mmol/L (3.5-5.1) 05/25/19 05:32 BUN 17 mg/dL (7-18) 05/25/19 05:32 Creatinine 0.51 mg/dL (0.55-1.3) L 05/25/19 05:32 Glucose 163 mg/dL (74-106) H 05/25/19 05:32 Phosphorus 3.1 mg/dL (2.5-4.9) 05/25/19 05:32 Magnesium 1.9 mg/dL (1.8-2.4) 05/25/19 05:32 Total Bilirubin 0.4 mg/dL (0.2-1.0) 05/25/19 05:32 AST 27 U/L (15-37) 05/25/19 05:32 ALT 23 U/L (12-78) 05/25/19 05:32 Alkaline Phosphatase 71 U/L (45-117) 05/25/19 05:32 Home Medications: Apixaban [Eliquis] 5 mg PO BID 05/22/19 Ascorbic Acid [Vitamin C] 1 tab DAILY 05/22/19 Biotin 1,000 mcg PO DAILY 05/22/19 Calcium Carbonate/Vitamin D3 [Caltrate 600 Plus D3 Tablet] 1 tab DAILY 05/22/19 Insulin Detemir [Levemir Flextouch] 20 units SQ BEDTIME 05/22/19 Lisinopril 40 mg PO DAILY 05/22/19 Melatonin 5 mg PO BEDTIME 05/22/19 Ranitidine [Zantac*] 150 mg PO DAILY 05/22/19 Vit A/Vit C/Vit E/Zinc/Copper [Vision Formula Softgel] 1 tab DAILY 05/22/19 Ofloxacin Oph [Floxin Otic 0.3%*] 0.5 ml OTIC BID #1 btl 05/25/19 New Medications: Ofloxacin Oph [Floxin Otic 0.3%*] 0.5 ml OTIC BID #1 btl Diet: Regular Activity: Ad debra Followup: Maureen Stovall MD [ACTIVE - CAN ADMIT] - 1 Week
--- NOTE | 2019-05-26 12:02 | CON ---
Date of Consultation: 05/24/2019 Reason For Consultation: Otitis externa. History Of Present Illness: The patient was admitted on May 22 for altered mental status, lethargy, and confusion. On admission history and physical, she was noted to have redness and tenderness of t he left ear and was started on IV antibiotics for cellulitis skin infection. According to the do aughters, who are at the bedside, the patient's ear has been red and painful for approximately 1 week . There is a scab on the antihelix, which the patient attributes to a small traumatic injury sustain ed when falling perhaps a month ago. Of note, the patient is a diabetic and the degree of her contro l of diabetes is uncertain. Within the hospital, her glucose levels have been in the 200 range sugge sting moderate to poor control of her diabetes. The patient denies drainage from the ear. She denie s prior similar episodes of swelling of the external ear or nasal tip. The granddaughters note the p atej has had issues with cerumen impaction in the past, but is uncertain as to whether prior cerume n removal or other significant otologic history has been present. Allergies: ETHER. Medications: Home medications include Eliquis, insulin, lisinopril, melatonin, and Zantac. Past Medical And Surgical History: Hypertension, diabetes, cholesterol, obesity, kidney surgery, bon e surgery. Social History: Negative for tobacco and alcohol. Physical Examination: General: The patient is alert, in no apparent distress. She is able to communicate with her family, primarily in Indonesian. HEENT: Her pupils are equal, round, and reactive. Her extraocular movements are intact. Her face o verall is atraumatic. There is no significant bruising or external lacerations noted. The external nose, lips, and oral cavity are otherwise unremarkable. The right ear appears normal in terms of the pinna without redness, edema, or lesions. The left ear shows moderate edema of the skin with erythe ma including the upper portion of the pinna, but sparing the earlobe, there is approximately 3-4 mm s cab on the antihelix, but this is not removed. The meatus shows a small amount of cerumen. Exam of the external auditory canal is limited due to lack of equipment. Examination with the speculum and p enlight does not show significant edema or purulence within the external auditory canal, but examinat ion of the ear drum is limited. Neck: Supple and there is no palpable lymphadenopathy. Laboratory Studies: The patient's white count on arrival and since arrival has been within normal li mits. Upon arrival, she had a mild left shift, which has resolved at the date of my visit. Her coag ulation studies show a slightly elevated PT. Her procalcitonin remains low. Her glucose levels have been elevated. Her TSH is within normal limits. Her urine demonstrated 2+ protein and glucose, 1+ blood and ketones, but negative for nitrites and leukocyte esterase. Urine culture showed no growth. CT of the head is reviewed. The brain CT at the time of admission is reviewed with attention to th e mastoid and middle ear. The sinuses appear clear. The mastoid and middle ear spaces appear clear from fluid or opacification. The ear canal appears patent. Paranasal sinuses are normal. There is mild septal deviation, but the CT overall is not suggestive of an acute or chronic inflammatory or in fectious process of the middle ear or mastoid spaces. Assessment: The left ear finding is difficult to discern from an infectious versus inflammatory proc ess. The ear canal does not appear to be involved, raising suspicion for localized cellulitis due to injury to the soft tissue. Other diagnostic considerations include a perichondritis. Findings sugg estive of perichondritis include the redness, swelling, tenderness, and pain of the upper portion of the pinna, sparing the earlobe. I discussed the diagnostic considerations with the patient's grandda ughters. They feel that since the patient was hospitalized that the redness of the ear is much adam r and was previously extending on to other portions of the ear or onto the anterior face, although I cannot determine this from available documentation. If the patient has had significant improvement i n the degree and extent of the redness, pain, and swelling, continuing anti-infective therapy with an tibiotics is appropriate. Treatment of perichondritis often involves oral steroids. I discussed wit h the granddaughters that in light of the patient's diabetic status and elevated blood sugars, admini stration of steroids carried risk of further worsening of her hyperglycemia. If the patient does not continue to improve, an addition of steroids for treatment of an inflammatory over an infectious pro cess would be recommended. The patient can follow up in my office on an as-needed basis. OLGA/MIRACLE Voice ID: [id number] Report ID: [id number]
== END 2019-05-25 12:40 | disposition home or self-care (01) | DRG 71 ==
LOC: ER 06:18 → ERHOLD 09:19 → 4TH 10:07
PROVIDERS: ADMIT Family Medicine; ATTEND Family Medicine
DX: G93.40 Encephalopathy, unspecified (principal); I50.30 Unspecified diastolic (congestive) heart failure; I16.0 Hypertensive urgency; H60.12 Cellulitis of left external ear; R13.10 Dysphagia, unspecified; I11.0 Hypertensive heart disease with heart failure; E11.9 Type 2 diabetes mellitus without complications; E78.5 Hyperlipidemia, unspecified; E66.09 Other obesity due to excess calories; Z68.33 Body mass index [BMI] 33.0-33.9, adult; Z79.4 Long term (current) use of insulin; Z86.73 Personal history of transient ischemic attack (TIA), and cerebral infarction without residual deficits
CPT/HCPCS: 36415; 51702; 70450; 70551; 71045; 71250; 74230; 80048; 80053; 81003; 82962; 83735; 83880; 84100; 84145; 84443; 85025; 85610; 85730; 87040; 87086; 87088; 92611; 93005; 93306; 93880; 94760; 96365; 96367; 97112; 97116; 97161; 97530; 99285; J0360; J0696; J1650; J3475; J7030

== ENCOUNTER 2021-04-25 12:28 | Emergency (ER) | payer OTHER ==
--- OUTSIDE RECORDS SUMMARY | 2021-04-25 12:31 | XMS REPORT | Continuity of Care Document ---
:1935 Author Organization [facility] t Address [address] [place] [address] Dr. Sanchez [address] [place] [id number] Care Team Providers Name Role Phone Unavailable Unavailable Unavailable Problems This patient has no known problems. Allergies, Adverse Reactions, Alerts This patient has no known allergies or adverse reactions. Medications This patient has no known medications. Procedures This patient has no known procedures. Results This patient has no known results.
[2021-04-25] MEDS ORDERED: NA CHLORIDE 0.9% 500 ML ONE (13:20)
--- NOTE | 2021-04-25 13:20 | RAD REPORT ---
EXAM DESCRIPTION: CT - Head C Spine Mpr Wo Con - 04/25/2021 1:04 pm CLINICAL HISTORY: Head and neck injury status post fall. Head and neck pain COMPARISON: Head CT 2018 TECHNIQUE: Computed axial tomography of the head and cervical spine was obtained. Sagittal and coronal reconstruction was performed. All CT scans are performed using dose optimization technique as appropriate and may include automated exposure control or mA/KV adjustment according to patient size. FINDINGS: An intracranial bleed is not seen. The ventricles are normal in caliber. 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 An extra-axial fluid collection is not noted.Fluid within the visualized sinuses and mastoids is not seen A cervical fracture is not visualized. No dislocation is noted. Spondylosis involves the cervical spi ne IMPRESSION: No acute intracranial abnormality is seen. A cervical fracture is not visualized. If the patient continues to have symptoms to suggest intracra nial /spinal cord pathology then MRI would be recommended
[2021-04-25 13:36] LABS: Urine Blood Negative (Negative); Urine Glucose Negative (Negative); Urine Protein Trace (Negative); Urine Specific Gravity 1.025 (1.005-1.030)
[2021-04-25 13:49] LABS: Absolute Lymphocytes (CBC) 1.3 K/uL (0.7-4.9); Hematocrit 36.5 % (36.0-45.0); Lymphocytes % 21.8 % (15.3-44.8); MPV 10.6 fL (7.6-11.3); RBC Red Blood Cell Count 3.85 M/uL (3.86-4.86)
[2021-04-25 14:01] LABS: BUN Blood Urea Nitrogen 13 mg/dL (7-18); Bicarbonate 31 mmol/L (21-32); Glucose Level 163 mg/dL (74-106); Potassium 3.7 mmol/L (3.5-5.1); Sodium Level 142 mmol/L (136-145)
--- NOTE | 2021-04-25 14:25 | EDPHYS ---
Physician Documentation [facility] Name: Mary Frias Age: 86 yrs Sex: Female : 1935 Arrival Date: 04/25/2021 Time: 12:31 Bed 25 Private MD: ED Physician Gabe Daniel HPI: 04/25 13:57 This 86 yrs old Female presents to ER via Unassigned with complaints of Fall rn Injury, High Blood Pressure. 13:57 Details of fall: The patient fell from an upright position. Onset: The symptoms/episode rn began/occurred 2 hour(s) ago. Associated injuries: The patient sustained injury to the head. Severity of symptoms: At their worst the symptoms were mild, in the emergency department the symptoms have improved. The patient has experienced similar episodes in the past. The patient has not recently seen a physician. Reports constantly dizzy, today was seated, stood up, felt lightheaded and dizzy, fell to ground, no LOC, hit head on unknown surface, remembers all events. + chronic pain to joints so unable to get up for a couple of hours, son found her and brought her here in private vehicle. Does not feel injury to extremities/back/ribs. Reports from fall, only new pain is to right side of head, + on blood thinners. . Historical: - Allergies: 12:55 ETHER; ld1 - Home Meds: 12:55 lopressor 50mg one tab BID, Lasix 20mg daily, metformin one tab 1000mg BID, Glimepiride ld1 4mg one tab BID, lisinopril 20mg one tab daily. [Active]; - PMHx: 12:55 fracture- right shoulder, forearm and left wrist.; NIDDM, HTN, hypercholestermia, ld1 kidney stones, obesity,; - Immunization history:: Adult Immunizations up to date. - Immunization history: Last tetanus immunization: - up to date. - Social history:: Smoking status: Patient denies any tobacco usage or history of. - Family history:: not pertinent. - Hospitalizations: : No recent hospitalization is reported. ROS: 13:57 Constitutional: Negative for fever, chills, and weight loss, Eyes: Negative for injury, rn pain, redness, and discharge, ENT: Negative for injury, pain, and discharge, Neck: Negative for injury, pain, and swelling, Cardiovascular: Negative for chest pain, palpitations, and edema, Respiratory: Negative for shortness of breath, cough, wheezing, and pleuritic chest pain, Abdomen/GI: Negative for abdominal pain, nausea, vomiting, diarrhea, and constipation, Back: Negative for injury and pain, : Negative for injury, bleeding, discharge, and swelling, MS/Extremity: Negative for injury and deformity, Skin: Negative for injury, rash, and discoloration, Neuro: Negative for weakness, numbness, tingling, and seizure. Exam: 13:57 Constitutional: This is a well developed, well nourished patient who is awake, alert, rn and in no acute distress. Head/Face: + small scalp hematoma right parietal region, no laceration or depression. Eyes: Periorbital areas with no swelling, redness, or edema. ENT: No oral trauma. Neck: No midline tenderness, no swelling. Cardiovascular: Regular rate and rhythm. No pulse deficits. Respiratory: No increased work of breathing, no retractions or nasal flaring. Abdomen/GI: soft, non-tender Back: No spinal tenderness. No costovertebral tenderness. Full range of motion. Skin: Warm, dry, no cellulitis MS/ Extremity: Pulses equal, no cyanosis. Neurovascular intact. Full, normal range of motion. Equal circumference. Neuro: Awake and alert, GCS 15, oriented to person, place, time, and situation. Cranial nerves II-XII grossly intact. Motor strength 5/5 in all extremities. Sensory grossly intact. Cerebellar exam normal. Vital Signs: 12:55 BP 166 / 65; Pulse 70; Resp 18; Temp 98.3(O); Pulse Ox 96% on R/A; ld1 13:50 BP 174 / 74; Pulse 61; Resp 18; Pulse Ox 96% on R/A; ld1 14:30 BP 169 / 70; Pulse 65; Resp 18; Pulse Ox 96% on R/A; ld1 [place] Coma Score: 12:45 Eye Response: spontaneous(4). Verbal Response: oriented(5). Motor Response: obeys ss commands(6). Total: 15. 12:55 Eye Response: spontaneous(4). Verbal Response: oriented(5). Motor Response: obeys ld1 commands(6). Total: 15. 13:50 Eye Response: spontaneous(4). Verbal Response: oriented(5). Motor Response: obeys ld1 commands(6). Total: 15. Trauma Score (Adult): 12:45 Eye Response: spontaneous(1); Verbal Response: oriented(1); Motor Response: obeys ss commands(2); Systolic BP: > 89 mm Hg(4); Respiratory Rate: 10 to 29 per min(4); [place] Score: 15; Trauma Score: 12 MDM: 12:46 Patient medically screened. rn 14:24 Differential diagnosis: closed head injury, contusion. Data reviewed: vital signs, rn nurses notes, lab test result(s), EKG, radiologic studies, CT scan, and as a result, I will discharge patient. Counseling: I had a detailed discussion with the patient and/or guardian regarding: the historical points, exam findings, and any diagnostic results supporting the discharge/admit diagnosis, lab results, radiology results, the need for outpatient follow up, to return to the emergency department if symptoms worsen or persist or if there are any questions or concerns that arise at home. Response to treatment: the patient's symptoms have mildly improved after treatment, and as a result, I will discharge patient. Special discussion: I discussed with the patient/guardian in detail that at this point there is no indication for admission to the hospital. It is understood, however, that if the symptoms persist or worsen the patient needs to return immediately for re-evaluation. 14:24 Special discussion: Based on the patient's history, exam and DX evaluation, there is no rn indication for emergent intervention or inpatient TX. It is understood by the patient/guardian that if the SXs persist or worsen they need to return immediately for re-evaluation. 04/25 12:55 Order name: CBC with Diff; Complete Time: 14:18 rn 04/25 12:55 Order name: Basic Metabolic Panel; Complete Time: 14:18 rn 04/25 12:55 Order name: CT Head C Spine; Complete Time: 13:42 rn 04/25 12:55 Order name: Urine Microscopic Only rn 04/25 13:35 Order name: Urine Dipstick-Ancillary; Complete Time: 13:42 EDHI 04/25 13:40 Order name: Glucose, Ancillary Testing; Complete Time: 13:42 EDHI 04/25 12:55 Order name: IV Start; Complete Time: 13:36 rn 04/25 12:55 Order name: EKG; Complete Time: 12:56 rn 04/25 12:55 Order name: EKG - Nurse/Tech; Complete Time: 13:22 rn 04/25 12:55 Order name: Glucose Level; Complete Time: 13:36 rn 04/25 12:55 Order name: Urine Dipstick-Ancillary (obtain specimen); Complete Time: 13:36 rn Administered Medications: 13:36 Drug: NS 0.9% 500 ml Route: IV; Rate: bolus; Site: left antecubital; ld1 Point of Care Testing: Blood Glucose: 13:36 Blood Glucose: 154 mg/dL; ld1 Ranges: Critical Glucose Levels:Adult <50 mg/dl or >400 mg/dl <40 mg/dl or >180 mg/dl Disposition Summary: 04/25/21 14:25 Discharge Ordered Location: Home rn Problem: new rn Symptoms: have improved rn Condition: Stable rn Diagnosis - Superficial injury of scalp rn - Other peripheral vertigo rn Followup: rn - With: Private Physician - When: As needed - Reason: Recheck today's complaints, Re-evaluation by your physician Discharge Instructions: - Discharge Summary Sheet rn - Hematoma rn - Vertigo rn Forms: - Medication Reconciliation Form rn - Thank You Letter rn - 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
--- NOTE | 2021-04-25 14:25 | ER ---
Nurse's Notes [facility] Name: Mary Frias Age: 86 yrs Sex: Female : 1935 Arrival Date: 04/25/2021 Time: 12:31 Bed 25 Private MD: Diagnosis: Superficial injury of scalp;Other peripheral vertigo Presentation: 04/25 12:41 Acuity: SARA 2 ss 12:41 Method Of Arrival: Wheelchair ss 12:41 Chief complaint: Patient states: Fall from standing. No LOC. Hematoma noted R parietal ss area. Care prior to arrival: None. Mechanism of Injury: Fall. Trauma event details: Injury occurred in the [facility], Injury occurred: at home. Injury occurred: April 25, 2021. 12:41 Coronavirus screen: Client denies travel out of the [place] in the last 14 days. At this ld1 time, the client does not indicate any symptoms associated with coronavirus-19. Ebola Screen: No symptoms or risks identified at this time. Initial Sepsis Screen: Does the patient meet any 2 criteria? No. Patient's initial sepsis screen is negative. Does the patient have a suspected source of infection? No. Patient's initial sepsis screen is negative. 12:41 Risk Assessment: Do you want to hurt yourself or someone else? Patient reports no ld1 desire to harm self or others. Onset of symptoms was April 25, 2021. Trauma Activation: Alert Physician: ED Physician; Name: ; Notified At: 12:45; Arrived At: Physician: General Surgeon; Name: ; Notified At: 14:48; Arrived At: Physician: Radiology; Name: ; Notified At: 14:48; Arrived At: Physician: Respiratory; Name: ; Notified At: 14:48; Arrived At: Physician: Lab; Name: ; Notified At: 14:48; Arrived At: Historical: - Allergies: 12:55 ETHER; ld1 - Home Meds: 12:55 lopressor 50mg one tab BID, Lasix 20mg daily, metformin one tab 1000mg BID, Glimepiride ld1 4mg one tab BID, lisinopril 20mg one tab daily. [Active]; - PMHx: 12:55 fracture- right shoulder, forearm and left wrist.; NIDDM, HTN, hypercholestermia, ld1 kidney stones, obesity,; - Immunization history:: Adult Immunizations up to date. - Immunization history: Last tetanus immunization: - up to date. - Social history:: Smoking status: Patient denies any tobacco usage or history of. - Family history:: not pertinent. - Hospitalizations: : No recent hospitalization is reported. Screenin:55 Abuse screen: Denies threats or abuse. Denies injuries from another. Nutritional ld1 screening: No deficits noted. Tuberculosis screening: No symptoms or risk factors identified. Fall Risk Fall in past 12 months (25 points). Gait- Weak (10 pts.). Total Nunez Fall Scale indicates Low Risk Score (25-44 pts). Fall prevention measures have been instituted. Side Rails Up X 2 Placed close to Nursing Station Frequent Obs/Assesments occuring Family Present and informed to notify staff if they need to leave bedside As available Patient and Family Educated on Fall Prevention Program and strategies. Primary Survey: 12:41 NO uncontrolled hemorrhage observed. Breathing/Chest: Respiratory pattern: regular, ss Respiratory effort: spontaneous, unlabored, Breath sounds: clear, bilaterally. Chest inspection: symmetrical rise and fall of the chest. Circulation: Pulses: palpable right radial artery, right posterior tibial artery, left radial artery and left posterior tibial artery. Skin color: pink, Skin temperature: warm. Disability Alert. Exposure/Environment: There is no evidence of uncontrolled external bleeding. Obvious injury(ies) are noted at this time: hematoma noted to R parietal area. No LOC. 13:35 Reassessment Airway Airway Patent Breathing/Chest Respiratory pattern Regular ss Respiratory effort Spontaneous Unlabored Chest inspection Symmetrical Circulation Color [place] Temperature Warm Disability Alert. Assessment: 12:45 General: Appears in no apparent distress. comfortable, Behavior is calm, cooperative, ss Denies fever, feeling ill, fatigue, chills. Pain: Denies pain. Neuro: Level of Consciousness is awake, alert, obeys commands, Oriented to person, place, time, situation. Respiratory: Airway is patent Trachea midline Respiratory effort is even, unlabored, Respiratory pattern is regular, symmetrical. GI: Patient currently denies diarrhea, nausea, vomiting. GI: Abdomen is round non-distended, Patient currently denies diarrhea, nausea, vomiting. EENT: Nares are clear Oral mucosa is moist. Throat is clear. Derm: Skin is intact, is healthy with good turgor, Skin is dry, Skin is pink, warm \T\ dry. normal. Musculoskeletal: Swelling present in R parietal area. 12:52 General: Appears in no apparent distress. comfortable, Behavior is calm, cooperative, ld1 appropriate for age. Pain: Denies pain. Neuro: Level of Consciousness is awake, alert, obeys commands, Oriented to person, place, time, situation, Appropriate for age Reports dizziness. Cardiovascular: Capillary refill < 3 seconds Patient's skin is warm and dry. Respiratory: Airway is patent Respiratory effort is even, unlabored, Respiratory pattern is regular, symmetrical. GI: Abdomen is round non-distended. : No signs and/or symptoms were reported regarding the genitourinary system. EENT: No signs and/or symptoms were reported regarding the EENT system. Derm: No signs and/or symptoms reported regarding the dermatologic system. Musculoskeletal: No signs and/or symptoms reported regarding the musculoskeletal system. 13:50 Reassessment: Patient appears in no apparent distress at this time. Patient is alert, ld1 oriented x 3, equal unlabored respirations, skin warm/dry/pink. 14:30 Reassessment: Patient appears in no apparent distress at this time. Patient is alert, ld1 oriented x 3, equal unlabored respirations, skin warm/dry/pink. Vital Signs: 12:55 BP 166 / 65; Pulse 70; Resp 18; Temp 98.3(O); Pulse Ox 96% on R/A; ld1 13:50 BP 174 / 74; Pulse 61; Resp 18; Pulse Ox 96% on R/A; ld1 14:30 BP 169 / 70; Pulse 65; Resp 18; Pulse Ox 96% on R/A; ld1 [place] Coma Score: 12:45 Eye Response: spontaneous(4). Verbal Response: oriented(5). Motor Response: obeys ss commands(6). Total: 15. 12:55 Eye Response: spontaneous(4). Verbal Response: oriented(5). Motor Response: obeys ld1 commands(6). Total: 15. 13:50 Eye Response: spontaneous(4). Verbal Response: oriented(5). Motor Response: obeys ld1 commands(6). Total: 15. Trauma Score (Adult): 12:45 Eye Response: spontaneous(1); Verbal Response: oriented(1); Motor Response: obeys ss commands(2); Systolic BP: > 89 mm Hg(4); Respiratory Rate: 10 to 29 per min(4); [place] Score: 15; Trauma Score: 12 ED Course: 12:31 Patient arrived in ED. ds1 12:41 Arm band placed on right wrist. ld1 12:45 Patient maintains SpO2 saturation greater than 95% on room air. ss 12:46 Gabe Daniel MD is Attending Physician. rn 12:52 Rose Woods, ANTONIO is Primary Nurse. ld1 12:55 Patient has correct armband on for positive identification. Placed in gown. Bed in low ld1 position. Call light in reach. Side rails up X2. puff iron operator on. Pulse ox on. NIBP on. Door closed. Noise minimized. Warm blanket given. 12:55 No provider procedures requiring assistance completed. ld1 13:04 CT Head C Spine In Process Unspecified. EDMS 14:19 Triage completed. ss 14:46 IV discontinued, intact, bleeding controlled, No redness/swelling at site. ld1 14:47 Thermoregulation: warm blanket given to patient. ld1 Administered Medications: 13:36 Drug: NS 0.9% 500 ml Route: IV; Rate: bolus; Site: left antecubital; ld1 Point of Care Testing: Blood Glucose: 13:36 Blood Glucose: 154 mg/dL; ld1 Ranges: Intake: 14:46 PO: 0ml; Total: 0ml. ld1 Outcome: 14:25 Discharge ordered by . rn 14:46 Discharged to home ambulatory. ld1 14:46 Condition: stable 14:46 Discharge instructions given to patient, family, Instructed on discharge instructions, follow up and referral plans. Demonstrated understanding of instructions, follow-up care. 14:47 Patient's length of stay was not longer than 2 hours. ld1 14:49 Patient left the ED. ld1 Signatures: Dispatcher [employer] [facility] Unique Smith ds1 Gabe Daniel MD MD rn Smirch, Shelby, RN RN Rose Woods RN RN ld1
[2021-04-25 15:01] VITALS: TEMP 98.3; O2SAT 96
[2021-04-25 15:03] VITALS: BP 169/70
[2021-04-25 15:09] LABS: Urine Bacteria <20 /HPF (<20); Urine RBC NONE SEEN /HPF (NONE SEEN)
--- NOTE | 2021-04-26 16:36 | EKG ---
Test Date: 2021-04-25 Test Time: 13:21:07 Ict Developer: SHADIA MEASUREMENT RESULTS: Intervals: Rate: 66 LA: 166 QRSD: 92 QT: 384 QTc: 402 [place]: P: 26 LA: 166 QRS: -22 T: 230 INTERPRETIVE STATEMENTS: Normal sinus rhythm ST & T wave abnormality, consider lateral ischemia Abnormal ECG Compared to ECG 05/22/2019 06:45:46 Possible ischemia now present Left ventricular hypertrophy no longer present ST (T wave) deviation still present Electronically Signed On 04-26-21 16:33:12 CDT by Andrade Fagan
== END 2021-04-25 14:49 | disposition home or self-care (01) ==
LOC: ER 12:28
DX: H81.399 Other peripheral vertigo, unspecified ear (principal); S00.03XA Contusion of scalp, initial encounter; W18.39XA Other fall on same level, initial encounter; Z88.8 Allergy status to other drugs, medicaments and biological substances; E11.9 Type 2 diabetes mellitus without complications; I10 Essential (primary) hypertension
CPT/HCPCS: 93005; 85025; 80048; 36415; 82947; 70450; 72125; J7040; 81003; 81015; 99285; G0390

== ENCOUNTER 2021-04-30 14:35 | Emergency (ER) | payer OTHER ==
--- OUTSIDE RECORDS SUMMARY | 2021-04-30 14:56 | XMS REPORT | Continuity of Care Document ---
:1935 Author Organization [facility] t Address [address] [place] [address] Dr. Sanchez [address] [place] [id number] Care Team Providers Name Role Phone Unavailable Unavailable Unavailable Problems This patient has no known problems. Allergies, Adverse Reactions, Alerts This patient has no known allergies or adverse reactions. Medications This patient has no known medications. Procedures This patient has no known procedures. Results This patient has no known results.
[2021-04-30 18:23] LABS: Absolute Lymphocytes (CBC) 1.5 K/uL (0.7-4.9); Basophils % 0.6 % (0-1.3); Hematocrit 34.9 % (36.0-45.0); Lymphocytes % 24.5 % (15.3-44.8); MPV 10.2 fL (7.6-11.3); RBC Red Blood Cell Count 3.67 M/uL (3.86-4.86)
[2021-04-30 18:34] LABS: Potassium 3.9 mmol/L (3.5-5.1)
--- NOTE | 2021-04-30 18:44 | RAD REPORT ---
EXAM DESCRIPTION: CT - [id number] - 04/30/2021 6:34 pm CLINICAL HISTORY: Fall injury COMPARISON: CT head and cervical April 25 TECHNIQUE: Axial 5 mm thick images of the head were obtained. Axial 2 mm thick images of the cervic al spine were obtained with sagittal and coronal reconstruction images generated and reviewed. All CT scans are performed using dose optimization technique as appropriate and may include automated exposure control or mA/KV adjustment according to patient size. FINDINGS: No intracranial hemorrhage, mass, edema or acute intracranial finding. No acute cortical i nfarction. The atrophy and chronic ischemic changes are stable. No new intracranial finding. No extra -axial fluid collections. Mastoid air cells and paranasal sinuses are clear. No globe or orbit abnorm ality seen. Cervical bodies are normal in height. There is reversal of the usual cervical lordosis that is unchan ged from comparison. No change in alignment. Multilevel midcervical disc space narrowing is present. Canal and foramen stenoses also stable. No fracture or acute bony abnormality. Central canal detail is inherently limited. No paraspinal mass or hematoma. IMPRESSION: Negative CT head examination for acute or significant finding. Atrophy and chronic ische theresa change match comparison. Negative CT cervical spine examination for acute or significant finding. Prominent cervical spine de generative change with canal and foramen stenoses stable from short interval April 25 imaging.
[2021-04-30 18:49] LABS: Urine Blood Negative (Negative); Urine Glucose Trace (Negative); Urine Protein Negative (Negative)
--- NOTE | 2021-04-30 19:50 | RAD REPORT ---
EXAM DESCRIPTION: RAD - Hand Right 3 View - 04/30/2021 7:01 pm CLINICAL HISTORY: PAIN, fall with hand pain primarily third fourth and fifth metacarpals COMPARISON: No comparisons FINDINGS: Bones are osteopenic. IP joint space narrowing present with spurring but no erosive compon ent. Advanced degenerative change at the first MCP joint. Radiocarpal joint space is narrowed. Carpal bone fracture not identified. Scaphoid bone is not optimally visualized. Patient has nondisplaced, nonangulated fractures at the base of the fourth and fifth metacarpals. Art icular surface is not involved. No pathologic component. There is no dislocation or periosteal reacti on noted. No foreign body or significant soft tissue abnormality. IMPRESSION: Nondisplaced, nonangulated fractures near the base of the right fourth and fifth metacar pals.
--- NOTE | 2021-04-30 19:51 | RAD REPORT ---
EXAM DESCRIPTION: RAD - Foot Left 3 View - 04/30/2021 7:01 pm CLINICAL HISTORY: Great toe pain COMPARISON: Foot Left 3 View dated 05/12/2016 FINDINGS: No fracture, dislocation or periosteal reaction. Bones are osteopenic. Patient has moderat e severity degenerative change at the first MTP joint. Mild hallux valgus configuration is seen along with joint space narrowing. There is hypertrophy along the medial margin of the first metatarsal hea d. Pathologic or destructive process is not identifiable. Plantar spur is present similar to comparis on. No air or foreign body in the soft tissues. 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 No significant change from the 2016 study.
[2021-04-30 19:57] LABS: Urine Bacteria <20 /HPF (<20); Urine RBC NONE SEEN /HPF (NONE SEEN)
--- NOTE | 2021-04-30 20:14 | EDPHYS ---
Physician Documentation [facility] Name: Mary Frias Age: 86 yrs Sex: Female : 1935 Arrival Date: 04/30/2021 Time: 14:40 Bed 6 Private MD: ED Physician Adolfo Barriga HPI: 04/30 19:05 This 86 yrs old Female presents to ER via Wheelchair with complaints of Fall pm1 Injury. 19:05 Details of fall: The patient fell from seated position, out of a chair. Onset: The pm1 symptoms/episode began/occurred today. Associated injuries: The patient sustained nose, mouth and chin, abrasion, medial aspect of right hand, swelling, tenderness, bruising, left first toe, tenderness. The patient has experienced similar episodes in the past, a few times. The patient has been recently seen at the [facility] Emergency Department, Patient with fall injury 5 days ago resulting in abrasion to left upper arm. Labs and imaging performed; and patient discharged home. Patient was attempting to sit down on a chair without her walker. As she was sitting down she fell forward and is presenting her with pain to right hand, left foot, and abrasion to her nose, lips, and chin. Negative for Headache, LOC, shortness of breath, chest pain. Historical: - Allergies: 14:59 ETHER; ca1 - Home Meds: 21:19 lopressor 50mg one tab BID, Lasix 20mg daily, metformin one tab 1000mg BID, Glimepiride bs2 4mg one tab BID, lisinopril 20mg one tab daily. [Active]; - PMHx: 14:59 fracture- right shoulder, forearm and left wrist.; NIDDM, HTN, hypercholestermia, ca1 kidney stones, obesity,; - Immunization history:: Client reports receiving the 2nd dose of the Covid vaccine, Client reports receiving the 1st dose of the Covid vaccine, Last tetanus immunization: unknown, Pneumococcal vaccine is up to date, Flu vaccine is up to date. - Social history:: Smoking status: Patient denies any tobacco usage or history of. ROS: 19:05 Constitutional: Negative for fever, chills, and weight loss, Eyes: Negative for injury, pm1 pain, redness, and discharge, ENT: Negative for injury, pain, and discharge, Neck: Negative for injury, pain, and swelling, Cardiovascular: Negative for chest pain, palpitations, and edema, Respiratory: Negative for shortness of breath, cough, wheezing, and pleuritic chest pain, Abdomen/GI: Negative for abdominal pain, nausea, vomiting, diarrhea, and constipation, Back: Negative for injury and pain. 19:05 Neuro: Negative for headache, weakness, numbness, tingling, and seizure. 19:05 MS/extremity: Positive for ecchymosis, tenderness, of the medial aspect of right hand, Pain to left great toe, Negative for decreased range of motion, deformity. 19:05 Skin: Positive for abrasion(s), of the chin and mouth and nose. Exam: 19:05 Constitutional: This is a well developed, well nourished patient who is awake, alert, pm1 and in no acute distress. 19:05 Back: No spinal tenderness. No costovertebral tenderness. Full range of motion. MS/ Extremity: Pulses equal, no cyanosis. Neurovascular intact. Full, normal range of motion. 19:05 Head/face: Noted is no obvious of injury or deformity except abrasion(s), that are mild, of the nose, mouth and chin. 19:05 Eyes: Exam is negative for acute changes, Periorbital structures: appear normal, Extraocular movements: no acute changes, Conjunctiva: no acute changes, no injection, Sclera: no acute changes, icterus, is not appreciated. 19:05 ENT: Exam is negative for acute changes, External ear(s): are unremarkable, Ear canal(s): are normal, TM's: are normal, Mouth: Oral mucosa: normal, pink and intact, moist, Lips with minor abrasions and bruising to left side of upper and lower lip. 19:05 Neck: External neck: is normal, C-spine: appears grossly normal, no vertebral tenderness, no crepitus, ROM/movement: is normal. 19:05 Chest/axilla: Exam negative for acute changes, Inspection: normal, Palpation: is normal, no crepitus, no tenderness. 19:05 Cardiovascular: Exam negative for acute changes, Rate: normal, Rhythm: regular, Pulses: no pulse deficits are appreciated. 19:05 Respiratory: Exam negative for acute changes, respiratory distress, shortness of breath, Breath sounds: are clear throughout. 19:05 Abdomen/GI: Exam negative for acute changes, Inspection: abdomen appears normal, Palpation: abdomen is soft and non-tender, in all quadrants. 19:05 Skin: Appearance: normal except for affected area, injury, abrasion(s), very small abrasion noted, of the right tricep. 19:05 Neuro: Exam negative for acute changes, Orientation: is normal, Mentation: is normal, Motor: is normal, moves all fours, Sensation: is normal, no obvious gross deficits. Vital Signs: 14:54 BP 129 / 64; Pulse 74; Resp 18 S; Temp 97.6(TE); Pulse Ox 96% on R/A; Weight 90.72 kg ca1 (R); Height 5 ft. 2 in. (157.48 cm) (R); Pain 10/10; 18:15 BP 181 / 65; Pulse 64; Resp 15; Pulse Ox 96% on R/A; tr6 14:54 Body Mass Index 36.58 (90.72 kg, 157.48 cm) ca1 Procedures: 21:08 Splinting: Splint applied to right hand using Orthoglass splint, ulnar gutter. applied pm1 by tech. Examined by me, post splint application: neurovascular intact, 2+ distal pulses palpable, brisk capillary refill noted, Patient tolerated well. MDM: 17:46 Patient medically screened. [facility] 19:15 Data reviewed: vital signs. Data interpreted: Pulse oximetry: on room air is 96 %. pm1 Interpretation: normal. 20:10 Counseling: I had a detailed discussion with the patient and/or guardian regarding: the pm1 historical points, exam findings, and any diagnostic results supporting the discharge/admit diagnosis, lab results, radiology results, the need for outpatient follow up, a hand specialist, to return to the emergency department if symptoms worsen or persist or if there are any questions or concerns that arise at home. 04/30 17:58 Order name: CBC with Diff pm1 04/30 17:58 Order name: BMP; Complete Time: 18:39 pm1 04/30 17:55 Order name: CT Head C Spine; Complete Time: 18:52 pm1 04/30 17:58 Order name: Urine Microscopic Only; Complete Time: 20:05 pm1 04/30 17:59 Order name: CBC with Automated Diff; Complete Time: 18:26 EDMS 04/30 18:49 Order name: Urine Dipstick-Ancillary; Complete Time: 18:52 EDMS 04/30 17:55 Order name: Hand Right 3 View XRAY; Complete Time: 20:05 pm1 04/30 17:55 Order name: Foot Left 3 View XRAY; Complete Time: 20:05 pm1 04/30 17:58 Order name: IV Saline Lock; Complete Time: 18:14 pm1 04/30 17:58 Order name: Urine Dipstick-Ancillary (obtain specimen); Complete Time: 18:53 pm1 04/30 17:58 Order name: EKG; Complete Time: 17:59 pm1 04/30 17:58 Order name: EKG - Nurse/Tech; Complete Time: 18:14 pm1 04/30 20:10 Order name: Ulnar Gutter splint; Complete Time: 21:18 pm1 Administered Medications: 20:40 Drug: traMADol 25 mg Route: PO; bs2 21:18 Follow up: Response: No adverse reaction bs2 Disposition: 05/01 13:24 Co-signature as Attending Physician, Adolfo Barriga MD I agree with the assessment and jose plan of care. Disposition Summary: 04/30/21 20:13 Discharge Ordered Location: Home pm1 Problem: new pm1 Symptoms: have improved pm1 Condition: Stable pm1 Diagnosis - Fall from chair, initial encounter pm1 - Nondisplaced fracture of base of fourth metacarpal bone, left hand, initial pm1 encounter for closed fracture - Nondisplaced fracture of base of fifth metacarpal bone, left hand, initial pm1 encounter for closed fracture Followup: pm1 - With: Emergency Department - When: As needed - Reason: Worsening of condition Followup: pm1 - With: Private Physician - When: 2 - 3 days - Reason: Recheck today's complaints, Continuance of care, Re-evaluation by your physician Followup: pm1 - With: Jayant Garcia MD - When: 2 - 3 days - Reason: Recheck today's complaints, Continuance of care, Re-evaluation by your physician Discharge Instructions: - Discharge Summary Sheet pm1 - Cast or Splint Care, Adult pm1 - Metacarpal Fracture pm1 - Fall Prevention in the Home, Adult pm1 Forms: - Medication Reconciliation Form pm1 - Thank You Letter pm1 - Antibiotic Education pm1 - Prescription Opioid Use pm1 Signatures: Dispatcher [employer] EDAdolfo Mclean MD MD cha Marinas, Patrick, UYEN RELOCATION COORDINATOR pm1 Celia Cornell RN RN Diane Ortiz bs2
--- NOTE | 2021-04-30 20:14 | ER ---
Nurse's Notes [facility] Name: Mary Frias Age: 86 yrs Sex: Female : 1935 Arrival Date: 04/30/2021 Time: 14:40 Bed 6 Private MD: Diagnosis: Fall from chair, initial encounter;Nondisplaced fracture of base of fourth metacarpal bone, left hand, initial encounter for closed fracture;Nondisplaced fracture of base of fifth metacarpal bone, left hand, initial encounter for closed fracture Presentation: 04/30 14:54 Chief complaint: Patient's son or daughter states: it's her 3rd time falling this week. ca1 Today, she bent to sit on a chair, lost her balance and fell face first on the rocks. Denies LOC. Abrasions on face. R upper arm, Pain on R wrist, R hand, L ankle. Coronavirus screen: Client denies travel out of the [place] in the last 14 days. At this time, the client does not indicate any symptoms associated with coronavirus-19. Ebola Screen: Patient negative for fever greater than or equal to 101.5 degrees Fahrenheit, and additional compatible Ebola Virus Disease symptoms Patient denies exposure to infectious person. Patient denies travel to an Ebola-affected area in the 21 days before illness onset. No symptoms or risks identified at this time. Initial Sepsis Screen: Does the patient meet any 2 criteria? No. Patient's initial sepsis screen is negative. Does the patient have a suspected source of infection? No. Patient's initial sepsis screen is negative. Risk Assessment: Do you want to hurt yourself or someone else? Patient reports no desire to harm self or others. Onset of symptoms was April 30, 2021. 14:54 Method Of Arrival: Wheelchair ca1 14:54 Acuity: SARA 3 ca1 Historical: - Allergies: 14:59 ETHER; ca1 - Home Meds: 21:19 lopressor 50mg one tab BID, Lasix 20mg daily, metformin one tab 1000mg BID, Glimepiride bs2 4mg one tab BID, lisinopril 20mg one tab daily. [Active]; - PMHx: 14:59 fracture- right shoulder, forearm and left wrist.; NIDDM, HTN, hypercholestermia, ca1 kidney stones, obesity,; - Immunization history:: Client reports receiving the 2nd dose of the Covid vaccine, Client reports receiving the 1st dose of the Covid vaccine, Last tetanus immunization: unknown, Pneumococcal vaccine is up to date, Flu vaccine is up to date. - Social history:: Smoking status: Patient denies any tobacco usage or history of. Screenin:18 Abuse screen: Denies threats or abuse. Nutritional screening: No deficits noted. jd3 Tuberculosis screening: No symptoms or risk factors identified. Fall Risk Fall in past 12 months (25 points). Ambulatory Aid- Crutches/Cane/Walker (15 pts). Gait- Weak (10 pts.). Mental Status- Oriented to own ability (0 pts). Total Nunez Fall Scale indicates High Risk Score (45 or more points). Fall prevention measures have been instituted. Side Rails Up X 2 Placed Close to Nursing Station Frequent Obs/Assessments Occuring Family Present and informed to notify staff if the need to leave the bedside. Assessment: 18:15 General: Appears in no apparent distress. comfortable, Behavior is calm, cooperative, jd3 appropriate for age. Pain: Complains of pain in right arm Quality of pain is described as aching. Neuro: Level of Consciousness is awake, alert, obeys commands, Oriented to person, place, time, situation. Cardiovascular: Capillary refill < 3 seconds Patient's skin is warm and dry. Rhythm is regular. Respiratory: Airway is patent Respiratory effort is even, unlabored, Respiratory pattern is regular, symmetrical, Denies cough, shortness of breath. GI: No signs and/or symptoms were reported involving the gastrointestinal system. : No signs and/or symptoms were reported regarding the genitourinary system. EENT: No signs and/or symptoms were reported regarding the EENT system. Derm: Skin is intact, Skin is dry, Skin is normal, Skin temperature is warm Wound noted Wound is Abrasions noted pt's face and R upper arm. Musculoskeletal: Circulation, motion, and sensation intact. Range of motion: intact in all extremities. 19:40 Reassessment: Patient appears in no apparent distress at this time. Assisted patient to 1 bs. Neuro: Level of Consciousness is awake, obeys commands, confused, Oriented to person, place. Respiratory: Respiratory effort is even, unlabored. Derm: Skin is pink, warm \T\ dry. Vital Signs: 14:54 BP 129 / 64; Pulse 74; Resp 18 S; Temp 97.6(TE); Pulse Ox 96% on R/A; Weight 90.72 kg ca1 (R); Height 5 ft. 2 in. (157.48 cm) (R); Pain 10/10; 18:15 BP 181 / 65; Pulse 64; Resp 15; Pulse Ox 96% on R/A; tr6 14:54 Body Mass Index 36.58 (90.72 kg, 157.48 cm) ca1 ED Course: 14:40 Patient arrived in ED. mr 14:58 Triage completed. ca1 14:59 Arm band placed on right wrist. ca1 17:27 Patient placed in an exam room, on a stretcher. ll1 17:45 Anirudh Calderón NP is PHCP. pm1 17:45 Adolfo Barriga MD is Attending Physician. pm1 17:49 Conrad Sosa RN is Primary Nurse. jd3 18:10 Initial lab(s) drawn, by sd, sent to lab. Inserted saline lock: 20 gauge in left dh3 antecubital area, using aseptic technique. Blood collected. 18:15 EKG done, by ED staff, reviewed by Anirudh Calderón NP. jd3 18:18 Patient has correct armband on for positive identification. Bed in low position. Call jd3 light in reach. Side rails up X2. Adult w/ patient. curriculum development specialist on. Pulse ox on. NIBP on. 18:34 CT Head C Spine In Process Unspecified. EDMS 19:02 Hand Right 3 View XRAY In Process Unspecified. EDMS 19:02 Foot Left 3 View XRAY In Process Unspecified. EDMS 20:12 CBC with Diff Sent. bs2 20:15 Jayant Garcia MD is Referral Physician. pm1 21:18 Assist provider with fracture care of right hand Fracture is closed. Obvious deformity bs2 is not noted. Immobilized with preformed splint, splint placed by ob scrub tech. IV discontinued, intact, bleeding controlled, No redness/swelling at site. Pressure dressing applied. Administered Medications: 20:40 Drug: traMADol 25 mg Route: PO; bs2 21:18 Follow up: Response: No adverse reaction bs2 Outcome: 20:13 Discharge ordered by . pm1 21:19 Discharged to home ambulatory, with family. bs2 21:19 Condition: improved 21:19 Discharge instructions given to patient, family, Instructed on discharge instructions, follow up and referral plans. Demonstrated understanding of instructions, follow-up care, splint care. 21:22 Patient left the ED. bs2 Signatures: Dispatcher [employer] Yamilka AgustinLourdes RN RN lp1 Anirudh Calderón, GREETER GREETER pm1 Ekaterina Stovall 3 Conrad Sosa RN RN jd3 Celia Cornell RN RN ca1 Iam Griffith RN RN ll1 Janie Hurtado RN RN tr6 Diane Connelly bs2 Corrections: (The following items were deleted from the chart) 14:59 14:54 Acuity: SARA 4 ca1 ca1 18:17 14:54 Chief complaint: Patient's son or daughter states: it's her 3rd time falling this jd3 week. Today, she bent to sit on a chair, lost her balance and fell face first on the rocks. Denies LOC. Abrasions on face. R upper arm, Pain on R wrist, R hand, L ankle. ca1 18:18 18:15 Pain: Complains of pain in back and chest Quality of pain is described as aching, jd3 jd3 18:18 18:15 Derm: Skin is intact, Skin is dry, Skin is normal, Skin temperature is warm Wound jd3 noted Wound is abrasions noted to right elbow jd3
[2021-04-30] MEDS ORDERED: TRAMADOL HCL 50 MG TAB ONE (20:57)
[2021-04-30 21:31] VITALS: TEMP 97.6; O2SAT 96
[2021-04-30 21:33] VITALS: BP 181/65
--- NOTE | 2021-05-01 10:29 | EKG ---
Test Date: 2021-04-30 Test Time: 18:11:12 Butter Liquefier: AURELIA MEASUREMENT RESULTS: Intervals: Rate: 65 WY: 168 QRSD: 94 QT: 430 QTc: 447 [place]: P: 27 WY: 168 QRS: -11 T: 46 INTERPRETIVE STATEMENTS: Normal sinus rhythm Nonspecific ST and T wave abnormality Abnormal ECG Compared to ECG 04/25/2021 13:21:07 Possible ischemia no longer present ST (T wave) deviation still present Electronically Signed On 05-01-21 10:28:38 CDT by Andrade Fagan
== END 2021-04-30 21:22 | disposition home or self-care (01) ==
LOC: ER 14:35
PROC: 2W3CX1Z Immobilization of Right Lower Arm using Splint (ICD-10-PCS; principal; 2021-04-30)
DX: S62.344A Nondisplaced fracture of base of fourth metacarpal bone, right hand, initial encounter for closed fracture (principal); S62.346A Nondisplaced fracture of base of fifth metacarpal bone, right hand, initial encounter for closed fracture; W07.XXXA Fall from chair, initial encounter; I10 Essential (primary) hypertension; E11.9 Type 2 diabetes mellitus without complications; Z88.4 Allergy status to anesthetic agent
CPT/HCPCS: 93005; 85025; 80048; 36415; 70450; 72125; 73130; 73630; 99285; 29125; Q9967; 81003; 81015

== ENCOUNTER 2021-08-04 11:45 | Emergency (ER) | payer OTHER ==
[2021-08-04 12:59] LABS: Absolute Lymphocytes (CBC) 0.9 K/uL (0.7-4.9); Basophils % 0.3 % (0-1.3); Hematocrit 33.9 % (36.0-45.0); Lymphocytes % 11.4 % (15.3-44.8); MPV 10.2 fL (7.6-11.3); RBC Red Blood Cell Count 3.62 M/uL (3.86-4.86)
[2021-08-04 13:10] LABS: Protime INR 1.11
[2021-08-04 13:16] LABS: BUN Blood Urea Nitrogen 21 mg/dL (7-18); Bicarbonate 33 mmol/L (21-32); Glucose Level 159 mg/dL (74-106); Potassium 4.4 mmol/L (3.5-5.1); Sodium Level 144 mmol/L (136-145)
--- NOTE | 2021-08-04 13:25 | RAD REPORT ---
EXAM DESCRIPTION: CT - Head C Spine Hesham Gurrola - 08/04/2021 1:06 pm CLINICAL HISTORY: Head and neck injury with chest and abdominal pain status post fall. Head and neck pain . TECHNIQUE: Computed axial tomography of the head and cervical spine was obtained Computed axial tomography of the chest, abdomen and pelvis was obtained. 100 cc Isovue-300 was given intravenously coronal and sagittal reconstruction was performed. All CT scans are performed using dose optimization technique as appropriate and may include automated exposure control or mA/KV adjustment according to patient size. COMPARISON: Multiple prior exams FINDINGS: An intracranial bleed is not seen. The ventricles are normal in caliber. An extra-axial fl uid collection is not noted. Fluid within the sinuses is not seen A cervical fracture is not seen. No dislocation is seen. A mediastinal hematoma is not noted. A pleural effusion is not present. A lung contusion is not seen. The liver, spleen, pancreas, adrenals, kidneys and bladder do not demonstrate a traumatic injury Right extrarenal pelvis. Small calcification in the region of the right UPJ unchanged from 2008 and l ikely represents a phlebolith rather than genitourinary calculus. Comminuted displaced fracture greater trochanter, intertrochanter and lesser trochanter right femur. Avulsion lesser trochanter. 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 If the patient continues have symptoms to suggest intracranial /spinal cord pathology then MRI would be recommended. No traumatic injury involving the chest or abdomen. Comminuted displaced fracture greater trochanter, intertrochanter and lesser trochanter right femur. Avulsion lesser trochanter.
[2021-08-04] MEDS ORDERED: ONDANSETRON 4 MG/2 ML VIAL ONE (13:26)
[2021-08-04] MEDS ORDERED: MORPHINE 4 MG/ML SYR ONE (13:26)
--- NOTE | 2021-08-04 14:24 | ER ---
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 pt repeatedly told EMS she hurts all over. Coronavirus screen: Vaccine status: Patient reports being unvaccinated. At this time, unable to obtain information related to travel outside the [place] Initial Sepsis Screen: Does the patient meet any 2 criteria? No. Patient's initial sepsis screen is negative. Risk Assessment: Do you want to hurt yourself or someone else? Patient reports no desire to harm self or others. Onset of symptoms was August 04, 2021 at 10:00. 12:21 Method Of Arrival: EMS: [facility] tc5 12:21 Acuity: SARA 3 tc5 15:42 Note Report called to Dewey at [facility] ER [phone]. tc5 Historical: - Allergies: 14:30 ETHER; bp - Home Meds: 14:30 lopressor 50mg one tab BID, Lasix 20mg daily, metformin one tab 1000mg BID, Glimepiride bp 4mg one tab BID, lisinopril 20mg one tab daily. [Active]; apixaban oral [Active]; Lisinopril Oral [Active]; Melatonin Oral [Active]; Ranitidine Oral [Active]; ascorbic acid oral [Active]; biotin oral [Active]; - PMHx: 14:30 NIDDM, HTN, hypercholestermia, kidney stones, obesity,; fracture- right shoulder, bp forearm and left wrist.; - Immunization history:: Adult Immunizations unknown, Client reports having NOT received the Covid vaccine. - Social history:: Smoking status: Patient denies any tobacco usage or history of. - Family history:: not pertinent. - Hospitalizations: : No recent hospitalization is reported. Screenin:31 Abuse screen: Denies threats or abuse. Denies injuries from another. Nutritional tc5 screening: No deficits noted. Tuberculosis screening: No symptoms or risk factors identified. Fall Risk Mental Status-. Assessment: 12:31 Pain: Complains of pain in right femoral area, right inguinal area, right iliac crest tc5 and right hip. 17:16 Reassessment: REPORT TO EMS. bp Vital Signs: 12:21 BP 176 / 85; Pulse 72; Resp 18; Temp 97.9; Pulse Ox 98% ; Weight 90.72 kg; Height 5 ft. tc5 3 in. (160.02 cm); Pain 10/10; 13:30 BP 163 / 56; Pulse 90; Resp 18; Pulse Ox 97% ; tc5 13:38 BP 163 / 56; Pulse 81; Resp 16; Pulse Ox 98% ; tc5 15:21 BP 137 / 83; Pulse 87; Resp 16; Pulse Ox 97% ; tc5 12:21 Body Mass Index 35.43 (90.72 kg, 160.02 cm) tc5 ED Course: 12:20 Patient arrived in ED. tc5 12:21 Kay Pavon, ANTONIO is Primary Nurse. tc5 12:26 Gabe Daniel MD is Attending Physician. rn 12:30 Triage completed. tc5 12:50 Ptt, Activated Sent. mh5 12:50 PT-INR Sent. mh5 12:50 Basic Metabolic Panel Sent. mh5 12:50 CBC with Diff Sent. mh5 12:51 Initial lab(s) drawn, by ED staff, sent to lab. COVID swab sent to lab. mh5 12:51 Patient has correct armband on for positive identification. Placed in gown. Bed in low mh5 position. Call light in reach. Side rails up X2. Warm blanket given. air sampling and monitoring on. Pulse ox on. NIBP on. 13:06 CT Traumagram (Head C Spine CAP W Con) In Process Unspecified. EDMS 14:06 initiated a transfer with Yamilex from the [facility] [place]. 14:12 administrative approval given by Yamilex Marques Rn/ patient has been accepted to [facility] ER/ Dr. Ivan Gil has accepted the patient without conference. report to be called to [phone]. 14:20 XRAY Hip RIGHT 2 view In Process Unspecified. EDMS 14:20 XRAY Femur RIGHT In Process Unspecified. EDMS 14:20 XRAY Tib Fib RIGHT In Process Unspecified. EDMS 14:28 Elbow Right 2 View In Process Unspecified. EDMS Administered Medications: 13:15 Drug: morphine 2 mg {Note: Admin by Deondre ALVAREZ.} Route: IVP; Site: right antecubital; tc5 15:22 Follow up: Response: No adverse reaction; Pain is decreased tc5 13:15 Drug: Zofran (Ondansetron) 4 mg {Note: given by deondre ALVAREZ.} Route: IVP; Site: right tc5 antecubital; 15:23 Drug: morphine 2 mg Route: IVP; Site: left antecubital; tc5 Outcome: 14:24 ER care complete, transfer ordered by . rn 17:30 Patient left the ED. eb Signatures: Dispatcher [employer] EDMS Gabe Daniel MD MD rn Martinez, Maria [facility] Deondre Lyon, RN RN Aarti Young Kay Pavon, RN RN tc5 Corrections: (The following items were deleted from the chart) 15:08 12:50 CORONAVIRUS+MR.LAB.SHERICE drawn and sent. [facility] EDDC
--- NOTE | 2021-08-04 14:25 | EDPHYS ---
Physician Documentation [facility] Name: Mary Frias Age: 86 yrs Sex: Female : 1935 Arrival Date: 08/04/2021 Time: 12:20 Bed 14 Private MD: ED Physician Gabe Daniel HPI: 08/04 14:18 This 86 yrs old Female presents to ER via EMS with complaints of Fall, right rn hip pain. 14:18 The patient or guardian reports decreased range of motion, an injury, pain. that rn occurred at home, sustained from a fall, the right lower extremity is shortened, The patient is not able to ambulate. Patient is not able to bear weight. There is no radiation of the patient's discomfort. the patient was discovered an unknown amount of time after the incident. The complaints affect the right hip. Onset: The symptoms/episode began/occurred this morning. Modifying factors: The symptoms are alleviated by nothing, the symptoms are aggravated by any movement. Associated signs and symptoms: Loss of consciousness: the patient experienced no loss of consciousness, Pertinent negatives: abdominal pain, chest pain, fever. Severity of symptoms: At their worst the symptoms were moderate, in the emergency department the symptoms are unchanged. The patient has not experienced similar symptoms in the past. The patient has not recently seen a physician. Patient reports fall this morning and landed on right side of body, reports pain to entire right side of body but localizes most of her pain to right hip. No LOC. No blood thinners. Was a mechanical fall.. Historical: - Allergies: 14:30 ETHER; bp - Home Meds: 14:30 lopressor 50mg one tab BID, Lasix 20mg daily, metformin one tab 1000mg BID, Glimepiride bp 4mg one tab BID, lisinopril 20mg one tab daily. [Active]; apixaban oral [Active]; Lisinopril Oral [Active]; Melatonin Oral [Active]; Ranitidine Oral [Active]; ascorbic acid oral [Active]; biotin oral [Active]; - PMHx: 14:30 NIDDM, HTN, hypercholestermia, kidney stones, obesity,; fracture- right shoulder, bp forearm and left wrist.; - Immunization history:: Adult Immunizations unknown, Client reports having NOT received the Covid vaccine. - Social history:: Smoking status: Patient denies any tobacco usage or history of. - Family history:: not pertinent. - Hospitalizations: : No recent hospitalization is reported. ROS: 14:18 Constitutional: Negative for fever, chills, and weight loss, Eyes: Negative for injury, rn pain, redness, and discharge, Neck: Positive for neck pain Cardiovascular: Negative for chest pain, palpitations, and edema, Respiratory: Negative for shortness of breath, cough, wheezing, and pleuritic chest pain, Abdomen/GI: Negative for abdominal pain, nausea, vomiting, diarrhea, and constipation, Back: Positive for mild lower back pain : Negative for injury, bleeding, discharge, and swelling, MS/Extremity: Positive injury and pain to right hip right knee right ankle Skin: Negative for injury, rash, and discoloration, Neuro: Negative for headache, weakness, numbness, tingling, and seizure. 14:18 All other systems are negative. Exam: 14:18 Constitutional: This is a well developed, well nourished patient who is awake, alert, rn and in no acute distress. Head/Face: Normocephalic, atraumatic. Eyes: Periorbital areas with no swelling, redness, or edema. Neck: Trachea midline, no midline cervical tenderness Chest/axilla: No bony tenderness of thorax, no crepitus Cardiovascular: Regular rate and rhythm . No pulse deficits. Respiratory: No increased work of breathing, no retractions or nasal flaring. Abdomen/GI: Soft, mild right sided abdominal tenderness without ecchymosis Back: No spinal tenderness Skin: Warm, dry MS/ Extremity: Pulses equal, no cyanosis. Right lower extremity shortened with some external rotation. Severe pain with the slightest movement of right hip. Neuro: Awake and alert, GCS 15, oriented to person, place, time, and situation. Cranial nerves II-XII grossly intact. Motor strength 5/5 in all extremities. Sensory grossly intact. 15:25 ECG was reviewed by the Attending Physician. rn Vital Signs: 12:21 BP 176 / 85; Pulse 72; Resp 18; Temp 97.9; Pulse Ox 98% ; Weight 90.72 kg; Height 5 ft. tc5 3 in. (160.02 cm); Pain 10/10; 13:30 BP 163 / 56; Pulse 90; Resp 18; Pulse Ox 97% ; tc5 13:38 BP 163 / 56; Pulse 81; Resp 16; Pulse Ox 98% ; tc5 15:21 BP 137 / 83; Pulse 87; Resp 16; Pulse Ox 97% ; tc5 12:21 Body Mass Index 35.43 (90.72 kg, 160.02 cm) tc5 MDM: 12:26 Patient medically screened. rn 14:18 Differential diagnosis: hip fracture, intertrochanteric fracture, femoral neck rn fracture, femoral shaft fracture, strain. Data reviewed: vital signs, nurses notes, lab test result(s), radiologic studies, CT scan, plain films, and as a result, I will admit patient. Data interpreted: pvc monitor: rate is 81 beats/min, rhythm is normal sinus rhythm, regular, with no ectopy, Interpretation: normal rate, normal rhythm, Pulse oximetry: on room air is 98 %. Interpretation: normal. Test interpretation: by ED physician or midlevel provider: plain radiologic studies, X-ray right hip shows comminuted intertrochanteric fracture of the right femur. Counseling: I had a detailed discussion with the patient and/or guardian regarding: the historical points, exam findings, and any diagnostic results supporting the discharge/admit diagnosis, lab results, radiology results, the need to transfer to another facility, for higher level of care, [facility] does not immediately have the required specialist, Consulted with Dr. Giraldo, fracture table not operational and unable to do intertrochanteric fractures at this hospital at this time. Will have to transfer. Response to treatment: the patient's symptoms have mildly improved after treatment, and as a result, I will admit patient. 08/04 12:27 Order name: Basic Metabolic Panel; Complete Time: 13:57 rn 08/04 12:27 Order name: CBC with Diff; Complete Time: 13:57 rn 08/04 12:27 Order name: PT-INR; Complete Time: 13:57 rn 08/04 12:27 Order name: Ptt, Activated; Complete Time: 13:57 rn 08/04 12:57 Order name: Glucose, Ancillary Testing; Complete Time: 13:57 EDMS 08/04 12:27 Order name: XRAY Hip RIGHT 2 view; Complete Time: 15: rn 08/04 12:27 Order name: XRAY Femur RIGHT; Complete Time: 15: rn 08/04 12:27 Order name: XRAY Tib Fib RIGHT; Complete Time: 15:09 rn 08/04 12:27 Order name: CT Traumagram (Head C Spine CAP W Con); Complete Time: 13:57 rn 08/04 15:08 Order name: SARS-COV-2 RT PCR EDMS 08/04 15:39 Order name: CREATININE WHOLE BLOOD EDMS 08/04 12:27 Order name: Labs collected and sent; Complete Time: 12:50 rn 08/04 12:27 Order name: EKG; Complete Time: 12:28 rn 08/04 12:27 Order name: EKG - Nurse/Tech rn 08/04 14:17 Order name: Elbow Right 2 View; Complete Time: 15:09 EDMS 08/04 15:10 Order name: Splint - Elbow - Posterior: right rn EC:25 Rate is 84 beats/min. Rhythm is regular. QRS [place] is Normal. HI interval is normal. QRS rn interval is normal. QT interval is normal. No Q waves. T waves are Normal. No ST changes noted. Clinical impression: NSR w/ Non-specific ST/T Changes. Interpreted by me. Reviewed by me. Administered Medications: 13:15 Drug: morphine 2 mg {Note: Admin by Deondre RN.} Route: IVP; Site: right antecubital; tc5 15:22 Follow up: Response: No adverse reaction; Pain is decreased tc5 13:15 Drug: Zofran (Ondansetron) 4 mg {Note: given by deondre RN.} Route: IVP; Site: right tc5 antecubital; 15:23 Drug: morphine 2 mg Route: IVP; Site: left antecubital; tc5 Disposition Summary: 08/04/21 14:24 Transfer Ordered Transfer Location: [facility] rn Reason: Higher level of care rn Condition: Stable rn Problem: new rn Symptoms: have improved rn Accepting Physician: Dr. Gil(08/04/21 17:30) eb Diagnosis - Displaced intertrochanteric fracture of right femur rn - Nondisplaced right radial head fracture rn Forms: - Medication Reconciliation Form rn - SBAR form rn Signatures: Dispatcher [employer] EDOR Gabe Daniel MD MD rn Peltier, Brian RN Aarti Herrera Theresa RN RN tc5 Corrections: (The following items were deleted from the chart) 14:16 12:28 Knee Right 3 View+RAD.RAD.BRZ ordered. EDMS EDMS 14:17 12:28 Elbow Right 3 View+RAD.RAD.BRZ ordered. EDMS EDMS 15:08 12:31 CORONAVIRUS+MR.LAB.BRZ ordered. EDMS EDMS 15:10 14:24 Dr. Jeffery jean rn 17:30 15:10 Dr. Jeffery jean eb
--- NOTE | 2021-08-04 14:26 | RAD REPORT ---
EXAM DESCRIPTION: RAD - Hip Right 2 View - 08/04/2021 2:20 pm CLINICAL HISTORY: Right hip pain FINDINGS: Comminuted fracture greater trochanter, intratrochanteric and lesser trochanter right femu r the with moderate displacement of fracture fragments. The lesser trochanter is avulsed medially. Varus angulation present at the fracture site. No dislocation
--- NOTE | 2021-08-04 14:27 | RAD REPORT ---
EXAM DESCRIPTION: RAD - Femur Right - 08/04/2021 2:21 pm CLINICAL HISTORY: Leg pain FINDINGS: Comminuted fracture greater trochanter, intratrochanteric and lesser trochanter right femur the with moderate displacement of fracture fragments. The lesser trochanter is avulsed medially. Varus angulation present at the fracture site. No dislocation
--- NOTE | 2021-08-04 14:28 | RAD REPORT ---
EXAM DESCRIPTION: RAD - Tib Fib Right - 08/04/2021 2:20 pm CLINICAL HISTORY: Right leg pain FINDINGS: Plate and screws affix old fractures distal tibia and fibula. No acute fracture seen. Osteoporosis
--- NOTE | 2021-08-04 14:41 | RAD REPORT ---
EXAM DESCRIPTION: RAD - Elbow Right 2 View - 08/04/2021 2:28 pm CLINICAL HISTORY: Elbow pain FINDINGS: Limited examination as only 2 films obtained and a true lateral not performed. Cortical regularity involves the radial head. This is equivocal for a nondisplaced fracture. The age is indeterminate. No dislocation
[2021-08-04] MEDS ORDERED: MORPHINE 2 MG/ML SYR ONE (15:41)
[2021-08-04 17:34] VITALS: TEMP 97.9
[2021-08-04 17:38] VITALS: BP 137/83; O2SAT 97
== END 2021-08-04 17:30 | disposition short-term general hospital (02) ==
LOC: ER 11:45
PROC: 2W38X1Z Immobilization of Right Upper Extremity using Splint (ICD-10-PCS; principal; 2021-08-04)
DX: S72.141A Displaced intertrochanteric fracture of right femur, initial encounter for closed fracture (principal); S52.124A Nondisplaced fracture of head of right radius, initial encounter for closed fracture; U07.1 COVID-19; W18.30XA Fall on same level, unspecified, initial encounter; Y92.009 Unspecified place in unspecified non-institutional (private) residence as the place of occurrence of the external cause; I10 Essential (primary) hypertension; E11.9 Type 2 diabetes mellitus without complications; Z88.4 Allergy status to anesthetic agent
CPT/HCPCS: 93005; 85025; 80048; 36415; 85610; 82565; 82947; 85730; 70450; 72125; 71260; 74177; 73502; 73070; 73552; 73590; 99284; 29105; U0003; Q9967; J2270; J2405

== ENCOUNTER 2022-06-21 12:19 | Emergency (ER) | payer OTHER ==
--- OUTSIDE RECORDS SUMMARY | 2022-06-21 12:24 | XMS REPORT | Continuity of Care Document ---
:1935 Author Organization [facility] t Address [address] [place] [address] Care Team Providers Name Role Phone Unknown, Physician Primary Care Physician Unavailable ANDREW SANCHEZ Attending Clinician Unavailable MARIA ALEJANDRA GILMORE Attending Clinician Unavailable JOSE MILLER Attending Clinician Unavailable TRICIA CASTAÑEDA Attending Clinician Unavailable Jose Miller MD Attending Clinician [phone] JENNY PINZON Attending Clinician Unavailable Jenny Pinzon DO Attending Clinician Janet Williamson Attending Clinician Maureen Lawson RN Attending Clinician Unavailable JENNY PINZON Admitting Clinician Unavailable Payers Payer Name Policy Type Policy Number Effective Date Expiration Date Chase sterling [facility] MEDICARE [id number] 2021 ADVANTAGE 00:00:00 [facility] [id number] 2021 [facility] [place] 00:00:00 [place] Problems Condition Condition Condition Status Onset Resolution Last Treating Co mments Source Name Details Category Date Date Treatment Clinician Date Closed Closed Disease Active 2020-10 [facility] displaced displaced 0-25 Heal th intertroch intertroch 00:00: anteric anteric 00 fracture fracture of right of right femur femur Pneumonia Pneumonia Disease Active Uni vers 9-08 ity of 00:00: [place] 00 Medical Branch Generalize Generalize Disease Active U joe d weakness d weakness 7-07 it y of 00:00: [place] 00 Medical Branch Insulin-re Insulin-re Disease Active U joe quiring or quiring or 5 it y of dependent dependent 00:[place] type II type II 00 Medical diabetes diabetes Branch mellitus mellitus Rotator Rotator Disease Active 2016-10 Univers cuff cuff 11-03 ity of arthropath arthropath [place], [place] y, right 00 Medica l Branch Status Status Disease Active 2016-10 Univers post open post open 11-03 ity of reduction reduction 00:00: Stefanie s with with 00 Medical internal internal Branch fixation fixation (ORIF) of (ORIF) of fracture fracture of ankle of ankle Osteopenia Osteopenia Disease Active 2016-10 U nivjovan , , 1 ity of unspecifie unspecifie [place] d location 00 Me dical Branch Closed Closed Disease Active 2016-10 [facility] fracture fracture 07 ity of of right of right 00:00: [place] ankle with ankle with 00 In dical delayed delayed Branch healing, healing, subsequent subsequent encounter encounter Acute Acute Disease Active 2016-10 Univers cystitis cystitis 07 ity of with with 00:00: [place] hematuria hematuria 00 [facility]a Branch Obesity Obesity Disease Active Univers (BMI (BMI 6-18 ity of 30-39.9) 30-39.9) 00:00: [place] 00 Medical Branch DVT (deep DVT (deep Disease Active Uni vers venous venous 8-12 [place]y of thrombosis thrombosis [place] ) 00 [facility] Branch Type 2 Type 2 Disease Active Univers diabetes diabetes 8-02 ity of mellitus mellitus 00:00: [place] 00 Medical Branch Essential Essential Disease Active Uni vers hypertensi hypertensi 05-29 it y of on on 00:00: 00 Medical Branch 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 Deep vein Deep vein Disease Active Uni vers thrombosis thrombosis it y of (DVT) of (DVT) of [place] right right [facility] lower lower Branch extremity, extremity, unspecifie unspecifie d d chronicity chronicity , , unspecifie unspecifie d vein d vein Macular Macular Disease Active [facility] degenerati degenerati it y of on on [facility] Allergies, Adverse Reactions, Alerts Allergy Allergy Status Severity Reaction(s) Onset Inactive Treating Comm ents Source Name Type Date Date Clinician ETHER DRUG Active Unknown-Cmnt Univ ers INGREDI 06-01 ity of 00:00: [place] 00 Medical Branch Ether Propensi Active Unknown - Unive rs ty to See comments 06-01 ity of adverse 00:00: [place] reaction 00 Medical s Branch Social History Social Habit Start Date Stop Date Quantity Comments Source Exposure to 2022-06-05 2022-06-15 Not sure [facility] SARS-CoV-2 00:00:00 20:50:00 [facility] [place] [facility] (event) Branch Alcohol intake 2022-06-15 2022-06-15 Lifetime [facility] 00:00:00 00:00:00 non-drinker [facility] [place] [facility] (finding) Branch Education 2021-07-05 2021-07-05 6 [facility] 00:00:00 00:00:00 [facility] Sex Assigned At [birth year] [facility] 00:[facility]:00 00:00:00 Smoking Status Start Date Stop Date Source Tobacco smoking consumption [place] [facility] unknown Never smoked tobacco [facility] Medications Ordered Filled Start Stop Current Ordering Indication Dosage Frequency Signature Comments Components Source Medication Medication Date Date Medication? Clinician (SIG) Name Name citalopram Yes [id number] 10mg Take 1 U nivers 10 mg 8-23 tablet by ity of tablet 00:00: mouth [place] 00 daily. Medical Branch Insulin Yes [id number] Take 25 Un addi Detemir 8-22 units ity of (LEVEMIR 00:00: [place] FLEXTOUCH 00 Patient Medical U-100 with type Branch INSULN) 100 2 diabetes unit/mL (3 ICD #10 mL) E11.9 injection Insulin 2021-0 Yes [id number] Take 25 Un addi Detemir 8-22 units ity of (LEVEMIR 00:00: [place] FLEXTOUCH 00 Patient Medical U-100 with type Branch INSULN) 100 2 diabetes unit/mL (3 ICD #10 mL) E11.9 injection Insulin 2021-0 Yes [id number] Take 25 Un addi Detemir 8-22 units ity of (LEVEMIR 00:00: [place]. [place] FLEXTOUCH 00 Patient Medical U-100 with type Branch INSULN) 100 2 diabetes unit/mL (3 ICD #10 mL) E11.9 injection Insulin 2021-0 Yes [id number] Take 25 Un addi Detemir 8-22 units ity of (LEVEMIR 00:00: daily [place] FLEXTOUCH 00 Patient Medical U-100 with type Branch INSULN) 100 2 diabetes unit/mL (3 ICD #10 mL) E11.9 injection dexamethaso 2021- No 10mg 10 mg, Uni vers ne sod phos 06-16 08-20 Oral, ity of PF 03:00: 03:02 ONCE, 1 [place] injection 00 :00 dose, On Medica l 10 mg Fri Branch 06/15/22 at 2200, 1 mL GABAPENTIN 2021-0 Yes [id number] Take 1 U nivers 300 mg 8-04 capsule by ity of capsule 00:00: mouth [place] 00 daily Medical Branch GABAPENTIN 2021-0 Yes [id number] Take 1 U nivers 300 mg 8-04 capsule by ity of capsule 00:00: mouth [place] 00 daily Medical Branch GABAPENTIN 2021-0 Yes [id number] Take 1 U nivers 300 mg 8-04 capsule by ity of capsule 00:00: mouth [place] 00 daily Medical Branch GABAPENTIN 2021-0 Yes [id number] Take 1 U nivers 300 mg 8-04 capsule by ity of capsule 00:00: mouth [place] 00 daily Medical Branch GABAPENTIN 2022-0 Yes [id number] Take 1 U nivers 300 mg 8-04 capsule by ity of capsule 00:00: mouth [place] 00 daily Medical Branch GABAPENTIN 0 Yes [id number] Take 1 U nivers 300 mg 8-04 capsule by ity of capsule 00:00: mouth [place] 00 daily Medical Branch ascorbic 2021-0 2- No 500mg Take 500 Uni vers acid, 05-18 07-22 mg by ity of vitamin C, 14:20: 00:00 mouth [place] (VITAMIN C) 04 :00 daily. Medica l 500 mg Branch tablet calcium Yes Take by Univers carbonate/v 7-22 mouth ity of itamin D3 13:24: daily. [place] (CALTRATE-6 34 Medical 00 PLUS Branch VITAMIN D3 ORAL) calcium Yes Take by Univers carbonate/v 7-22 mouth ity of itamin D3 13:24: daily. [place] (CALTRATE-6 34 Medical 00 PLUS Branch VITAMIN D3 ORAL) calcium Yes Take by Univers carbonate/v 7-22 mouth ity of itamin D3 13:24: daily. [place] (CALTRATE-6 34 Medical 00 PLUS Branch VITAMIN D3 ORAL) calcium Yes Take by Univers carbonate/v 7-22 mouth ity of itamin D3 13:24: daily. [place] (CALTRATE-6 34 Medical 00 PLUS Branch VITAMIN D3 ORAL) calcium Yes Take by Univers carbonate/v 7-22 mouth ity of itamin D3 13:24: daily. [place] (CALTRATE-6 34 Medical 00 PLUS Branch VITAMIN D3 ORAL) calcium Yes Take by Univers carbonate/v 7-22 mouth ity of itamin D3 13:24: daily. [place] (CALTRATE-6 34 Medical 00 PLUS Branch VITAMIN D3 ORAL) calcium Yes Take by Univers carbonate/v 7-22 mouth ity of itamin D3 13:24: daily. [place] (CALTRATE-6 34 Medical 00 PLUS Branch VITAMIN D3 ORAL) cyanocobala Yes [id number] 1000ug 1 mL by Univers min 1,000 7-20 Intramuscu ity of mcg/mL 00:00: lar route [place] injection 00 every 14 Medica l (fourteen) days. cyanocobala Yes [id number] 1000ug 1 mL by Univers min 1,000 7-20 Intramuscu ity of mcg/mL 00:00: lar route [place] injection 00 every 14 Medica l (fourteen) Branch days. cyanocobala 2021-0 Yes [id number] 1000ug 1 mL by Univers min 1,000 7-20 Intramuscu ity of mcg/mL 00:00: lar route [place] injection 00 every 14 Medica l (fourteen) Branch days. cyanocobala 2021-0 Yes [id number] 1000ug 1 mL by Univers min 1,000 7-20 Intramuscu ity of mcg/mL 00:00: lar route [place] injection 00 every 14 Medica l (fourteen) Branch days. cyanocobala 2021-0 Yes [id number] 1000ug 1 mL by Univers min 1,000 7-20 Intramuscu ity of mcg/mL 00:00: lar route [place] injection 00 every 14 Medica l (fourteen) Branch days. cyanocobala 2021-0 Yes [id number] 1000ug 1 mL by Univers min 1,000 7-20 Intramuscu ity of mcg/mL 00:00: lar route [place] injection 00 every 14 Medica l (fourteen) Branch days. cyanocobala 2021-0 Yes [id number] 1000ug 1 mL by Univers min 1,000 7-20 Intramuscu ity of mcg/mL 00:00: lar route [place] injection 00 every 14 Medica l (fourteen) Branch days. lisinopriL 2021-0 Yes [id number] 40mg Take 1 U nivers 40 mg 6-27 tablet by ity of tablet 00:00: mouth [place] 00 every Medical evening. Branch lisinopriL 2021-0 Yes [id number] 40mg Take 1 U nivers 40 mg 6-27 tablet by ity of tablet 00:00: mouth [place] 00 every Medical evening. Branch lisinopriL 2022-0 Yes [id number] 40mg Take 1 U nivers 40 mg 6-27 tablet by ity of tablet 00:00: mouth [place] 00 every Medical evening. Branch lisinopriL 2-0 Yes [id number] 40mg Take 1 U nivers 40 mg 6-27 tablet by ity of tablet 00:00: mouth [place] 00 every Medical evening. Branch lisinopriL 2-0 Yes [id number] 40mg Take 1 U nivers 40 mg 6-27 tablet by ity of tablet 00:00: mouth [place] 00 every Medical evening. Branch lisinopriL 2021-0 Yes [id number] 40mg Take 1 U nivers 40 mg 6-27 tablet by ity of tablet 00:00: mouth [place] 00 every Medical evening. Branch lisinopriL 2021-0 Yes [id number] 40mg Take 1 U nivers 40 mg 6-27 tablet by ity of tablet 00:00: mouth [place] 00 every Medical evening. Branch Insulin 2021-0 Yes [id number] Take 25 Un addi Detemir 6-24 units ity of (LEVEMIR 00:00: daily [place]Q. [place] FLEXTOUCH 00 Patient Medical U-100 with type Branch INSULN) 100 2 diabetes unit/mL (3 ICD #10 mL) E11.9 injection mirtazapine 2021-0 Yes [id number] 15mg Take 1 Univers 15 mg 6-24 tablet by ity of tablet 00:00: mouth at [place] 00 bedtime. Medical Branch Syringe 2021-0 Yes [id number] Use as Univ ers with 6-24 directed ity of Needle, 00:00: [place] Disp, (EASY 00 Medical TOUCH) 1 mL Branch 25 gauge x 1" Syrg Insulin 2021-0 Yes [id number] Take 25 Un addi Detemir 6-24 units ity of (LEVEMIR 00:00: daily [place]Q. [place] FLEXTOUCH 00 Patient Medical U-100 with type Branch INSULN) 100 2 diabetes unit/mL (3 ICD #10 mL) E11.9 injection mirtazapine 2021-0 Yes [id number] 15mg Take 1 Univers 15 mg 6-24 tablet by ity of tablet 00:00: mouth at [place] 00 bedtime. Medical Branch Syringe 2021-0 Yes [id number] Use as Univ ers with 6-24 directed ity of Needle, 00:00: [place] Disp, (EASY 00 Medical TOUCH) 1 mL Branch 25 gauge x 1" Syrg Insulin 2021-0 Yes [id number] Take 25 Un addi Detemir 6-24 units ity of (LEVEMIR 00:00: daily [place]Q. [place] FLEXTOUCH 00 Patient Medical U-100 with type Branch INSULN) 100 2 diabetes unit/mL (3 ICD #10 mL) E11.9 injection mirtazapine 2021-0 Yes [id number] 15mg Take 1 Univers 15 mg 6-24 tablet by ity of tablet 00:00: mouth at [place] [address] bedtime. Medical Branch Syringe 2021-0 Yes [id number] Use as Univ ers with 6-24 directed ity of Needle, 00:00: [place] Disp, (EASY 00 Medical TOUCH) 1 mL Branch 25 gauge x 1" Syrg mirtazapine 2021-0 Yes [id number] 15mg Take 1 Univers 15 mg 6-24 tablet by ity of tablet 00:00: mouth at [place] [address] bedtime. Medical Branch Syringe 0 Yes [id number] Use as Univ ers with 6-24 directed ity of Needle, 00:00: [place] Disp, (EASY 00 Medical TOUCH) 1 mL Branch 25 gauge x 1" Syrg mirtazapine 2021-0 Yes [id number] 15mg Take 1 Univers 15 mg 6-24 tablet by ity of tablet 00:00: mouth at [place] [address] bedtime. Medical Branch Syringe 0 Yes [id number] Use as Univ ers with 6-24 directed ity of Needle, 00:00: [place] Disp, (EASY 00 Medical TOUCH) 1 mL Branch 25 gauge x 1" Syrg mirtazapine 2021-0 Yes [id number] 15mg Take 1 Univers 15 mg 6-24 tablet by ity of tablet 00:00: mouth at [place] [address] bedtime. Medical Branch Syringe 2021-0 Yes [id number] Use as Univ ers with 6-24 directed ity of Needle, 00:00: [place] Disp, (EASY 00 Medical TOUCH) 1 mL Branch 25 gauge x 1" Syrg mirtazapine 2021-0 Yes [id number] 15mg Take 1 Univers 15 mg 6-24 tablet by ity of tablet 00:00: mouth at [place] [address] bedtime. Medical Branch Syringe 2021-0 Yes [id number] Use as Univ ers with 6-24 directed ity of Needle, 00:00: [place] Disp, (EASY 00 Medical TOUCH) 1 mL Branch 25 gauge x 1" Syrg Insulin 0 2022- No [id number] Take 25 U nivers Detemir 6-24 08-22 units ity of (LEVEMIR 00:00: 00:00 daily SQ. [place] as FLEXTOUCH 00 :00 Patient Medical U-100 with type Branch INSULN) 100 2 diabetes unit/mL (3 ICD #10 mL) E11.9 injection traZODone 2021- No [id number] 50mg Take 1 Univers 50 mg 6-24 - tablet by ity of tablet 00:00: 00:00 mouth at [place] 00 :00 bedtime. Medical Branch apixaban Yes [id number] 5mg Take 1 Univers (ELIQUIS) 5 2-25 tablet by ity of mg tablet 00:00: mouth 2 (two) Medical times Branch daily. Indication s: DVT prevention apixaban Yes [id number] 5mg Take 1 Univers (ELIQUIS) 5 2-25 tablet by ity of mg tablet 00:00: mouth (two) Medical times Branch daily. Indication s: DVT prevention apixaban Yes [id number] 5mg Take 1 Univers (ELIQUIS) 5 2-25 tablet by ity of mg tablet 00:00: mouth (two) Medical times Branch daily. Indication s: DVT prevention apixaban Yes [id number] 5mg Take 1 Univers (ELIQUIS) 5 2-25 tablet by ity of mg tablet 00:00: mouth 2 (two) Medical times Branch daily. Indication s: DVT prevention apixaban Yes [id number] 5mg Take 1 Univers (ELIQUIS) 5 2-25 tablet by ity of mg tablet 00:00: mouth (two) Medical times Branch daily. Indication s: DVT prevention apixaban Yes [id number] 5mg Take 1 Univers (ELIQUIS) 5 2-25 tablet by ity of mg tablet 00:00: mouth 2 (two) Medical times Branch daily. Indication s: DVT prevention apixaban Yes [id number] 5mg Take 1 Univers (ELIQUIS) 5 2-25 tablet by ity of mg tablet 00:00: mouth (two) Medical times Branch daily. Indication s: DVT prevention OLANZapine 2021- No [id number] 2.5mg Take 1 Univers 2.5 mg 2-25 07-22 tablet by ity of tablet 00:00: 00:00 mouth [place] 00 :00 daily. Medical Branch gabapentin 2021-0 Yes [id number] 300mg Take 1 Univers 300 mg 1-06 capsule by ity of capsule 00:00: mouth [place] 00 daily. Medical Branch gabapentin 2021- No [id number] 300mg Take 1 Univers 300 mg 11-02- capsule by ity of capsule 00:00: 00:00 mouth [place] 00 :00 daily. Medical Branch acetaminoph 2020-10- No [id number] 1{tbl} Take 1 [facility] en-codeine 0-20 10-28 tablet by [facility] (Tylenol w/ 00:00: 04:59 mouth Codeine #3) 00 :00 every 8 300-30 MG (eight) tablet hours if needed for severe pain for up to 7 days. acetaminoph 2020-10- No [id number] 1{tbl} Take 1 [place] en-codeine 0-20 10-28 tablet by [facility] (Tylenol w/ 00:00: 04:59 mouth Codeine #3) 00 :00 every 8 300-30 MG (eight) tablet hours if needed for severe pain for up to 7 days. acetaminoph 2020-10- No [id number] 1{tbl} Take 1 [place] en-codeine 0-20 10-28 tablet by [facility] (Tylenol w/ 00:00: 04:59 mouth Codeine #3) 00 :00 every 8 300-30 MG (eight) tablet hours if needed for severe pain for up to 7 days. vit A-vit 2021- No [id number] 1{tbl} Place 1 Univers C-vit 03-24 tablet in ity of E-zinc-martina 00:00: 00:00 cheeks [place] as er 00 :00 daily. Medical 7,160-113-1 Branch 00 unit-mg-uni t Tab biotin 2021- No Take by Univers 1,000 mcg 05-22 mouth. ity of Chew 00:00: 00:00 [place] 00 :00 Medical Branch Diclofenac 2021- No [id number] Apply to Univers Sodium 12-16 area(s) 2 ity of (VOLTAREN) 00:00: 00:00 (two) [place] 1 % gel 00 :00 times Medical daily. Branch Immunizations Ordered Filled Immunization Date Status Comments [facility] e Immunization Name Name SARS-COV-2 COVID-19 2021-12-08 Completed Unive rsity of MODERNA VACCINE 00:00:00 [facility] SARS-COV-2 COVID-19 2021-12-08 Completed Unive rsity of MODERNA VACCINE 00:00:00 [facility] SARS-COV-2 COVID-19 2021-12-08 Completed Unive rsity of MODERNA VACCINE 00:00:00 [facility] SARS-COV-2 COVID-19 2021-12-08 Completed Unive rsity of MODERNA VACCINE 00:00:00 [facility] SARS-COV-2 COVID-19 2021-12-08 Completed Unive rsity of MODERNA VACCINE 00:00:00 [facility] Branch SARS-COV-2 COVID-19 2021-12-08 Completed Unive rsity of MODERNA VACCINE 00:00:00 [facility] Branch SARS-COV-2 COVID-19 2021-12-08 Completed Unive rsity of MODERNA VACCINE 00:00:00 [facility] Influenza Virus 2021-10-19 Completed Universit y of Vaccine,quad 00:00:00 [place] Medica l Im,preserve Free Branch 65+ Influenza Virus 2021-10-19 Completed Universit y of Vaccine,quad 00:00:00 [place] Medica l Im,preserve Free Branch 65+ Influenza Virus 2021-10-19 Completed Universit y of Vaccine,quad 00:00:00 [place] Medica l Im,preserve Free Branch 65+ Influenza Virus 2021-10-19 Completed Universit y of Vaccine,quad 00:00:00 [place] Medica l Im,preserve Free Branch 65+ Influenza Virus 2021-10-19 Completed Universit y of Vaccine,quad 00:00:00 [place] Medica l Im,preserve Free Branch 65+ Influenza Virus 2021-10-19 Completed Universit y of Vaccine,quad 00:00:00 [place] Medica l Im,preserve Free Branch 65+ Influenza Virus 2021-10-19 Completed Universit y of Vaccine,quad 00:00:00 [place] Medica l Im,preserve Free Branch 65+ SARS-COV-2 COVID-19 2021-01-22 Completed Unive rsity of MODERNA VACCINE 00:00:00 [place] Med ical Branch SARS-COV-2 COVID-19 2021-01-22 Completed Unive rsity of MODERNA VACCINE 00:00:00 [facility] ical Branch SARS-COV-2 COVID-19 2021-01-22 Completed Unive rsity of MODERNA VACCINE 00:00:00 [facility] ical Branch SARS-COV-2 COVID-19 2021-01-22 Completed Unive rsity of MODERNA VACCINE 00:00:00 [facility] SARS-COV-2 COVID-19 2021-01-22 Completed Unive rsity of MODERNA VACCINE 00:00:00 [facility] SARS-COV-2 COVID-19 2021-01-22 Completed Unive rsity of MODERNA VACCINE 00:00:00 [facility] SARS-COV-2 COVID-19 2021-01-22 Completed Unive rsity of MODERNA VACCINE 00:00:00 [facility] SARS-COV-2 COVID-19 2020-12-25 Completed Unive rsity of MODERNA VACCINE 00:00:00 [facility] SARS-COV-2 COVID-19 2020-12-25 Completed Unive rsity of MODERNA VACCINE 00:00:00 [facility] SARS-COV-2 COVID-19 2020-12-25 Completed Unive rsity of MODERNA VACCINE 00:00:00 [facility] SARS-COV-2 COVID-19 2020-12-25 Completed Unive rsity of MODERNA VACCINE 00:00:00 [facility] SARS-COV-2 COVID-19 2020-12-25 Completed Unive rsity of MODERNA VACCINE 00:00:00 [facility] SARS-COV-2 COVID-19 2020-12-25 Completed Unive rsity of MODERNA VACCINE 00:00:00 [facility] SARS-COV-2 COVID-19 2020-12-25 Completed Unive rsity of MODERNA VACCINE 00:00:00 [facility] Influenza High Dose 2020-07-27 Completed Unive rsity of Quad 00:00:00 [facility] Influenza High Dose 2020-07-27 Completed Unive rsity of Quad 00:00:00 [facility] Influenza High Dose 2020-07-27 Completed Unive rsity of Quad 00:00:00 [facility] Influenza High Dose 2020-07-27 Completed Unive rsity of Quad 00:00:00 [facility] Influenza High Dose 2020-07-27 Completed Unive rsity of Quad 00:00:00 [facility] Influenza High Dose 2020-07-27 Completed Unive rsity of Quad 00:00:00 [facility] Influenza High Dose 2020-07-27 Completed Unive rsity of Quad 00:00:00 [facility] TDAP 2019-11-13 Completed University of 00:00:00 [facility] TDAP 2019-11-13 Completed University of 00:00:00 [facility] TDAP 2019-11-13 Completed University of 00:00:00 [facility] TDAP 2019-11-13 Completed University of 00:00:00 [facility] TDAP 2019-11-13 Completed University of 00:00:00 [facility] TDAP 2019-11-13 Completed University of 00:00:00 [facility] TDAP 2019-11-13 Completed University of 00:00:00 [facility] Influenza High Dose 2018-08-18 Completed Unive rsity of 00:00:00 [facility] Influenza High Dose 2018-08-18 Completed Unive rsity of 00:00:00 [facility] Influenza High Dose 2018-08-18 Completed Unive rsity of 00:00:00 [facility] Influenza High Dose 2018-08-18 Completed Unive rsity of 00:00:00 [facility] Influenza High Dose 2018-08-18 Completed Unive rsity of 00:00:00 [facility] Influenza High Dose 2018-08-18 Completed Unive rsity of 00:00:00 [facility] Influenza High Dose 2018-08-18 Completed Unive rsity of 00:00:00 [facility] Pneumococcal 2017-09-03 Completed University o f Polysaccharide, 00:00:00 [place] Med ical PPSV23 (PNEUMOVAX) Branch Influenza High Dose 2017-09-03 Completed Unive rsity of 00:00:00 [facility] Pneumococcal 2017-09-03 Completed University o f Polysaccharide, 00:00:00 [place] Med ical PPSV23 (PNEUMOVAX) Branch Influenza High Dose 2017-09-03 Completed Unive rsity of 00:00:00 [facility] Pneumococcal 2017-09-03 Completed University o f Polysaccharide, 00:00:00 [place] Med ical PPSV23 (PNEUMOVAX) Branch Influenza High Dose 2017-09-03 Completed Unive rsity of 00:00:00 [facility] Pneumococcal 2017-09-03 Completed University o f Polysaccharide, 00:00:00 [place] Med ical PPSV23 (PNEUMOVAX) Branch Influenza High Dose 2017-09-03 Completed Unive rsity of 00:00:00 [facility] Pneumococcal 2017-09-03 Completed University o f Polysaccharide, 00:00:00 [place] Med ical PPSV23 (PNEUMOVAX) Branch Influenza High Dose 2017-09-03 Completed Unive rsity of 00:00:00 [facility] Pneumococcal 2017-09-03 Completed University o f Polysaccharide, 00:00:00 [place] Med ical PPSV23 (PNEUMOVAX) Branch Influenza High Dose 2017-09-03 Completed Unive rsity of 00:00:00 [facility] Pneumococcal 2017-09-03 Completed University o f Polysaccharide, 00:00:00 [place] Med ical PPSV23 (PNEUMOVAX) Branch Influenza High Dose 2017-09-03 Completed Unive rsity of 00:00:00 [facility] Pneumococcal 13 2016-09-04 Completed Universit y of Conjugate, PCV13 00:00:00 [place] Me dical (Prevnar 13) Branch Pneumococcal 13 2016-09-04 Completed Universit y of Conjugate, PCV13 00:00:00 [place] Me dical (Prevnar 13) Branch Pneumococcal 13 2016-09-04 Completed Universit y of Conjugate, PCV13 00:00:00 [place] Me dical (Prevnar 13) Branch Pneumococcal 13 2016-09-04 Completed Universit y of Conjugate, PCV13 00:00:00 [place] Me dical (Prevnar 13) Branch Pneumococcal 13 2016-09-04 Completed Universit y of Conjugate, PCV13 00:00:00 [place] Me dical (Prevnar 13) Branch Pneumococcal 13 2016-09-04 Completed Universit y of Conjugate, PCV13 00:00:00 [place] [facility] (Prevnar 13) Branch Pneumococcal 13 2016-09-04 Completed Universit y of Conjugate, PCV13 00:00:00 [facility] dical (Prevnar 13) Branch Influenza High Dose 2016-07-31 Completed Unive rsity of 00:00:00 [facility] Influenza High Dose 2016-07-31 Completed Unive rsity of 00:00:00 [facility] Influenza High Dose 2016-07-31 Completed Unive rsity of 00:00:00 [facility] Influenza High Dose 2016-07-31 Completed Unive rsity of 00:00:00 [facility] Influenza High Dose 2016-07-31 Completed Unive rsity of 00:00:00 [facility] Influenza High Dose 2016-07-31 Completed Unive rsity of 00:00:00 [facility] Influenza High Dose 2016-07-31 Completed Unive rsity of 00:00:00 [facility] Vital Signs Vital Name Observation Time Observation Value Comments Source Body temperature 2022-06-16 01:56:00 36.5 Evette [facility] [address] of [facility] Systolic blood 2022-06-16 01:53:00 182 mm[Hg] Univer sity of pressure [facility] Diastolic blood 2022-06-16 01:53:00 71 mm[Hg] Unive rsity of pressure [facility] Heart rate 2022-06-16 01:53:00 81 /min Universi ty of [facility] Respiratory rate 2022-06-16 01:53:00 18 /min Univ ersity [facility] Body height 2022-06-16 01:53:00 160 [address] [facility] [address] [facility] Body weight 2022-06-16 01:53:00 83.462 kg Univers ty [facility] BMI 2022-06-16 01:53:00 32.59 kg/m2 [facility] Oxygen saturation in 2022-06-16 01:53:00 95 /min [facility] Arterial blood by [facility] Pulse oximetry Branch Systolic blood 2022-05-18 18:18:00 115 mm[Hg] Univer sity of pressure [facility] Diastolic blood 2022-05-18 18:18:00 69 mm[Hg] Unive rsity of pressure [facility] Heart rate 2022-05-18 18:18:00 68 /min Universi ty of [facility] Body temperature 2022-05-18 18:14:00 35.89 [place] [facility] [address] of [facility] Respiratory rate 2022-05-18 18:14:00 16 /min Univ ersity of [facility] Body weight 2022-05-18 18:14:00 83.462 kg Universi ty [facility] BMI 2022-05-18 18:14:00 32.59 kg/m2 Universi ty [facility] Oxygen saturation in 2022-05-18 18:14:00 95 /min University Arterial blood by [facility] Pulse oximetry Branch Procedures Procedure Date / Time Performed Performing Clinician Filomena werner XR FEMUR 2 VW LEFT 2022-06-16 02:17:15 Jenny Pinzon [facility] sity [facility] XR HIPS 2 VW LEFT 2022-06-16 02:17:15 [facility] P[facility] <3 VW 2022-06-16 02:17:15 [facility] NOTICE OF PRIVACY 2022-06-16 01:43:47 Doctor Unassigned, No [facility] PRACTICES Name [facility] CONSENT/REFUSAL FOR 2022-06-16 01:43:02 Doctor Unassigned, No [facility] DIAGNOSIS AND Name [facility] TREATMENT POCT URINALYSIS 2022-05-18 18:58:00 Jose Miller [facility] Encounters Start End Encounter Admission Attending Care Care Encounter Source Date/Time Date/Time Type Type Clinicians Facility Department ID 2021-11-04 Outpatient DANIEL, [facility] [id number] [place] 01:03:46 [facility] 2021-09-26 Outpatient [facility] [id number] [place] 09:19:10 [facility] 2021-09-11 Outpatient [facility] [id number] [place] 14:18:55 [facility] 2021-08-21 Outpatient DANIELA, [facility] [id number] [place] 09:27:06 [facility] 2022-08-10 2022-08-10 Outpatient Sienna MILLER [facility] [id number] Univers 14:00:00 14:00:00 JOSE galeas [facility] 2022-07-20 2022-07-20 Outpatient Sienna CASTAÑEDA [facility] [id number] Univers 10:10:00 10:10:00 TRICIA [id number] gudelia [facility] 2022-06-19 2022-06-19 Telephone Paul MOCARO [id number] Univers 00:00:00 00:00:00 Jose FERRARA [id number] ity of [place]AL[place] [id number] [facility] [id number] [facility] AND [address] DIABETES [facility] 2022-06-17 2022-06-17 Jah Miller MOCARO [id number] Univers 00:00:00 00:00:00 Jose FERRARA [id number] ity of [place] [id number] [facility] [id number] [address] DIABETES [facility] 2022-06-15 2022-06-15 Emergency X [facility] ERT [id number] Univers 20:58:00 22:18:[address] [facility] 2022-06-15 2022-06-15 Emergency [facility] [id number] Univers 20:58:00 22:18:00 Jenny LOONEY [id number] ity of [place] [id number] [place] [address] [id number] [place] [address] Branch 2022-06-15 2022-06-15 Judith Miller [facility] [id number] Univers 00:00:00 00:00:00 Jose FERRARA [id number] ity of [place] [id number] [facility] [id number] [address] DIABETES [facility] 2022-06-15 2022-06-15 Jah Miller [facility] [id number] Univers 00:00:00 00:00:00 Jose FERRARA [id number] ity of [place] [id number] [facility] [id number] [address] DIABETES [facility] 2022-05-31 2022-05-31 Jah Miller MOCARO 1.2.840.114 [id number] Univers 00:00:00 00:00:00 Jose FERRARA [id number] ity of [place] 4.2.7.2.686 [facility] s FOWLER [id number] [facility] AND [address] DIABETES CLINIC 2022-05-18 2022-05-18 Outpatient Sienna MILLER [facility] [id number] [facility] 13:00:00 14:33:[address] [facility] 2022-05-18 2022-05-18 Office Paul [facility] 1.2.840.114 [id number] [facility] 13:00:00 13:30:00 Visit Jose Cross [place] [id number] ity of [place] [id number] [facility] [id number] [facility] AND [address] DIABETES CLINIC 2021-10-30 2021-10-30 Office ALEKSANDRA Gilmore 6414 1.2.840.114 [id number] [place] 11:30:00 12:54:36 Visit Maria Alejandra [address] [id number] Health 9.2.7.2.686 [id number] 1 2021-09-18 2021-09-18 Office ALEKSANDRA Hartman 6414 1.2.840.114 [id number] [place] 11:20:25 12:31:[address] [id number] Health 9.2.7.2.686 [id number] 1 2021-08-23 2021-08-23 Telephone Maureen Lawson 1.2.840. 114 [id number] [place] 00:00:00 00:00:00 Maureen Lawson [id number] Health CLINIC [id number] [id number] 1 2021-08-21 2021-08-21 Office ALEKSANDRA Gilmore 1.2.840.114 [id number] [place] 09:05:04 09:25:58 Visit Maria Alejandra TRAUMA [id number] [facility] CLINIC 9.2.7.2.686 [id number] 1 2021-08-16 2021-08-16 Refill Maureen Lawson 1.2.840.11 [id number] [place] 00:00:00 00:00:00 Maureen Lawson TRAUMA [id number] [facility] CLINIC [id number] [id number] 1 Results Test Description Test Time Test Comments Results Result Comments Source POCT URINALYSIS W SPECIFIC GRAVITY 2022-05-18 19:22:00 Test Item Value Reference Range Interpretation Comme nts POCT U SP GRAV (test code = 3255) 1.010 mg/dl 1.005-1.025 POCT PH U (test code = 3254) 5 mg/dl 5-8 POCT U LEUK EST (test code = 3263) neg Negative - Negative POCT U NIT (test code = 3262) neg Negative - Negative POCT U PROT (test code = 3259) + Negative - Negative POCT U GLU (test code = 3256) normal Negative - Negative POCT U KETONE (test code = 3258) neg Negative - Negative POCT U UROBILI (test code = 3260) normal 0.2-1 POCT U BILI (test code = 3261) neg Negative - Negative POCT U BLD (test code = 3257) neg Negative - Negative POCT U COLOR (test code = 3266) dark yellow POCT U APPEAR (test code = 3267) [facility]
--- NOTE | 2022-06-21 14:01 | RAD REPORT ---
EXAM DESCRIPTION: CT - Head C Spine Mpr Wo Con - 06/21/2022 1:30 pm CLINICAL HISTORY: Head and neck injury status post fall. Head and neck pain COMPARISON: TECHNIQUE: Computed axial tomography of the head and cervical spine was obtained. Sagittal and coronal reconstruction was performed. All CT scans are performed using dose optimization technique as appropriate and may include automated exposure control or mA/KV adjustment according to patient size. FINDINGS: An intracranial bleed is not seen. The ventricles are normal in caliber. An extra-axial fl uid collection is not noted.Fluid within the visualized sinuses and mastoids is not seen A cervical fracture is not visualized. No dislocation is noted. Spondylosis involves cervical spine IMPRESSION: No acute intracranial abnormality is seen. A cervical fracture is not visualized. If the patient continues to have symptoms to suggest intracra nial /spinal cord pathology then MRI would be recommended
--- NOTE | 2022-06-21 14:08 | EDPHYS ---
Physician Documentation [facility] Name: Mary Frias Age: 87 yrs Sex: Female : 1935 Arrival Date: 06/21/2022 Time: 12:56 Bed 23 Private MD: ED Physician Marco Butler HPI: 06/21 14:07 This 87 yrs old Female presents to ER via EMS with complaints of Fall Injury. ms3 14:07 Details of fall: The patient fell from an upright position, while walking. Onset: The ms3 symptoms/episode began/occurred acutely, just prior to arrival. Associated injuries: The patient sustained no obvious injury. Severity of symptoms: At their worst the symptoms were very mild, in the emergency department the symptoms are unchanged. Historical: - Allergies: 13:17 ETHER; tw2 - Home Meds: 13:17 apixaban Oral [Active]; ascorbic acid oral [Active]; biotin Oral [Active]; lisinopril tw2 Oral [Active]; lopressor 50mg one tab BID, Lasix 20mg daily, metformin one tab 1000mg BID, Glimepiride 4mg one tab BID, lisinopril 20mg one tab daily. [Active]; Melatonin Oral [Active]; Ranitidine Oral [Active]; - PMHx: 13:17 fracture- right shoulder, forearm and left wrist.; NIDDM, HTN, hypercholestermia, tw2 kidney stones, obesity,; - Immunization history:: Adult Immunizations. - Social history:: Smoking status: . ROS: 14:07 Constitutional: Negative for fever, and chills. Neck: Negative for injury, pain, and ms3 swelling, Cardiovascular: Negative for chest pain, and palpitations. Respiratory: Negative for shortness of breath, cough, wheezing, and pleuritic chest pain, MS/Extremity: Negative for injury and deformity, Skin: Negative for injury, rash, and discoloration. 14:07 All other systems are negative. Exam: 14:07 Constitutional: This is a well developed, well nourished patient who is awake, alert, ms3 and in no acute distress. Head/Face: Normocephalic, atraumatic. Neck: Trachea midline, no cervical lymphadenopathy. Supple, full range of motion without nuchal rigidity, or vertebral point tenderness. No Meningismus. Chest/axilla: Normal chest wall appearance and motion. Nontender with no deformity. Cardiovascular: Regular rate and rhythm with a normal S1 and S2. No gallops, murmurs, or rubs. Normal PMI, no JVD. No pulse deficits. Respiratory: Lungs have equal breath sounds bilaterally, clear to auscultation and percussion. No rales, rhonchi or wheezes noted. No increased work of breathing, no retractions or nasal flaring. Abdomen/GI: Soft, non-tender, with normal bowel sounds. No distension or tympany. No guarding or rebound. No evidence of tenderness throughout. Back: No spinal tenderness. No costovertebral tenderness. Full range of motion. Skin: Warm, dry with normal turgor. Normal color with no rashes, no lesions, and no evidence of cellulitis. Psych: Awake, alert, with orientation to person, place and time. Behavior, mood, and affect are within normal limits. Vital Signs: 13:00 BP 141 / 51; Pulse 79; Resp 16; Temp 99.2(O); Pulse Ox 95% on R/A; Weight 77.11 kg (R); tw2 13:52 BP 140 / 54; Pulse 78; Resp 17; Pulse Ox 98% on R/A; tw2 14:26 BP 136 / 60; Pulse 77; Resp 17; Pulse Ox 97% on R/A; tw2 MDM: 13:01 Patient medically screened. ms3 14:07 Data reviewed: vital signs, nurses notes, radiologic studies, and as a result, I will ms3 discharge patient. Counseling: I had a detailed discussion with the patient and/or guardian regarding: the historical points, exam findings, and any diagnostic results supporting the discharge/admit diagnosis, lab results, radiology results, the need for outpatient follow up. Special discussion: I discussed with the patient/guardian in detail that at this point there is no indication for admission to the hospital. It is understood, however, that if the symptoms persist or worsen the patient needs to return immediately for re-evaluation. 06/21 13:03 Order name: CT Head C Spine; Complete Time: 14:03 ms3 Administered Medications: No medications were administered Disposition Summary: 06/21/22 14:07 Discharge Ordered Location: Home ms3 Condition: Stable ms3 Diagnosis - Fall on same level from slipping, tripping and stumbling with subsequent striking ms3 against object Followup: ms3 - With: Private Physician - When: 2 - 3 days - Reason: Re-evaluation by your physician Discharge Instructions: - Discharge Summary Sheet ms3 - Fall Prevention in the Home, Adult ms3 Forms: - Medication Reconciliation Form ms3 - Thank You Letter ms3 - Antibiotic Education ms3 - Prescription Opioid Use ms3 Signatures: Dispatcher [employer] EDMarine Sibley RN RN tw2 Marco Butler DO DO ms3
--- NOTE | 2022-06-21 14:08 | ER ---
Nurse's Notes [facility] Name: Mary Frias Age: 87 yrs Sex: Female : 1935 Arrival Date: 06/21/2022 Time: 12:56 Bed 23 Private MD: Diagnosis: Fall on same level from slipping, tripping and stumbling with subsequent striking against object Presentation: 06/21 12:57 Chief complaint: EMS states: pt is from home. family says she normally uses her walker tw2 or a w/c to get around and come to breakfast. she was late in coming out this morning. family went to check on her and they assumed she had a mechanical fall. her brief was twisted around her knee. denies LOC. No c/o pain with palpation. she does have hx dementia that is intermittent. as well as hx of chronic pain to back and leg. does take blood thinners. vs stable. bgl 270 mg/dL. 13:00 Initial Sepsis Screen: Does the patient meet any 2 criteria? No. Patient's initial tw2 sepsis screen is negative. Does the patient have a suspected source of infection? No. Patient's initial sepsis screen is negative. Risk Assessment: Do you want to hurt yourself or someone else? Patient reports no desire to harm self or others. Onset of symptoms was June 21, 2022. 13:05 Coronavirus screen: At this time, the client does not indicate any symptoms associated tw2 with coronavirus-19. Ebola Screen: Patient denies travel to an Ebola-affected area in the 21 days before illness onset. 13:05 Method Of Arrival: EMS: [facility] tw2 13:11 Care prior to arrival: None. Mechanism of Injury: Fall from standing position. Trauma tw2 event details: Injury occurred in the [facility]. 13:11 Acuity: SARA 3 tw2 Triage Assessment: 12:57 General: Appears in no apparent distress. well groomed, Behavior is calm, cooperative, tw2 appropriate for age. Pain: Denies pain. Neuro: Francois Agitation-Sedation Scale (RASS): 0 - Alert and Calm Level of Consciousness is awake, alert, obeys commands, Oriented to person, place, situation, pt has episodes of intermittent confusion w/hx of dementia. Respiratory: Airway is patent Respiratory effort is even, unlabored, Respiratory pattern is regular, symmetrical. GI: Abdomen is round non-distended. Musculoskeletal: Circulation, motion, and sensation intact. Range of motion: intact in all extremities. Trauma Activation: Alert Physician: ED Physician; Name: ; Notified At: ; Arrived At: Physician: General Surgeon; Name: ; Notified At: ; Arrived At: Physician: Radiology; Name: ; Notified At: ; Arrived At: Physician: Respiratory; Name: ; Notified At: ; Arrived At: Physician: Lab; Name: ; Notified At: ; Arrived At: Historical: - Allergies: 13:17 ETHER; tw2 - Home Meds: 13:17 apixaban Oral [Active]; ascorbic acid oral [Active]; biotin Oral [Active]; lisinopril tw2 Oral [Active]; lopressor 50mg one tab BID, Lasix 20mg daily, metformin one tab 1000mg BID, Glimepiride 4mg one tab BID, lisinopril 20mg one tab daily. [Active]; Melatonin Oral [Active]; Ranitidine Oral [Active]; - PMHx: 13:17 fracture- right shoulder, forearm and left wrist.; NIDDM, HTN, hypercholestermia, tw2 kidney stones, obesity,; - Immunization history:: Adult Immunizations. - Social history:: Smoking status: . Screenin:17 Abuse screen: Denies threats or abuse. Nutritional screening: No deficits noted. tw2 Tuberculosis screening: No symptoms or risk factors identified. Fall Risk Secondary diagnosis (15 points) dementia, impaired mobility, Ambulatory Aid- Crutches/Cane/Walker (15 pts). Assessment: 13:17 Reassessment: see triage assessment. tw2 13:52 Reassessment: Patient appears in no apparent distress at this time. No changes from tw2 previously documented assessment. Patient and/or family updated on plan of care and expected duration. Pain level reassessed. Patient is alert, oriented x 3, equal unlabored respirations, skin warm/dry/pink. 13:52 Reassessment: pts daughter is at bedside at this time. tw2 14:26 Reassessment: Patient appears in no apparent distress at this time. No changes from tw2 previously documented assessment. Patient and/or family updated on plan of care and expected duration. Pain level reassessed. Patient is alert, oriented x 3, equal unlabored respirations, skin warm/dry/pink. 14:41 Reassessment: pts family requesting brief and socks for pt and she was brought to ER in tw2 just a gown. items provided and placed on pt. pts nephew helps to get pt in wc at this time. Vital Signs: 13:00 BP 141 / 51; Pulse 79; Resp 16; Temp 99.2(O); Pulse Ox 95% on R/A; Weight 77.11 kg (R); tw2 13:52 BP 140 / 54; Pulse 78; Resp 17; Pulse Ox 98% on R/A; tw2 14:26 BP 136 / 60; Pulse 77; Resp 17; Pulse Ox 97% on R/A; tw2 ED Course: 12:56 Patient arrived in ED. tw2 12:57 Bed in low position. Call light in reach. Side rails up X2. electronic device monitor on. Pulse tw2 ox on. NIBP on. Warm blanket given. 13:01 Marco Butler DO is Attending Physician. ms3 13:13 Triage completed. tw2 13:14 Marine Velazco, RN is Primary Nurse. tw2 13:16 Arm band placed on. tw2 13:32 CT Head C Spine In Process Unspecified. EDMS 14:41 No provider procedures requiring assistance completed. Patient did not have IV access tw2 during this emergency room visit. Administered Medications: No medications were administered Medication: 14:26 VIS not applicable for this client. tw2 Outcome: 14:07 Discharge ordered by MD. ms3 14:41 Discharged to home via wheelchair, with family. tw2 14:41 Condition: stable 14:41 Discharge instructions given to patient, family, Instructed on discharge instructions, follow up and referral plans. Demonstrated understanding of instructions, follow-up care. 14:41 Patient left the ED. tw2 Signatures: Dispatcher [employer] EDMS Marine Velazco RN RN tw2 Marco Butler DO DO ms3 Corrections: (The following items were deleted from the chart) 13:13 13:05 Chief complaint: EMS states: pt is from home. family says she normally uses her tw2 walker or a w/c to get around and come to breakfast. she was late in coming out this morning. family went to check on her and they assumed she had a mechanical fall. her brief was twisted around her knee. denies LOC. No c/o pain with palpation. she does have hx dementia that is intermittent. does take blood thinners. vs stable. bgl 270 mg/dL. tw2 : 13:05 Method Of Arrival: EMS: [facility] tw2 tw2 13: 12:57 Chief complaint: EMS states: pt is from home. family says she normally uses her tw2 walker or a w/c to get around and come to breakfast. she was late in coming out this morning. family went to check on her and they assumed she had a mechanical fall. her brief was twisted around her knee. denies LOC. No c/o pain with palpation. she does have hx dementia that is intermittent. does take blood thinners. vs stable. bgl 270 mg/dL. tw2
[2022-06-21 15:37] VITALS: TEMP 99.2
[2022-06-21 15:42] VITALS: BP 136/60; O2SAT 97
== END 2022-06-21 14:41 | disposition home or self-care (01) ==
LOC: ER 12:19
DX: R51.9 Headache, unspecified (principal); M54.2 Cervicalgia; W01.10XA Fall on same level from slipping, tripping and stumbling with subsequent striking against unspecified object, initial encounter; I10 Essential (primary) hypertension; Z87.442 Personal history of urinary calculi; Z88.4 Allergy status to anesthetic agent
CPT/HCPCS: 70450; 72125; 99284